=== PATIENT | female | born 1975 | race Caucasian/White ===

== ENCOUNTER 2023-03-18 13:42 | Emergency (ER) | payer OTHER, SELFPAY ==
[2023-03-18 13:45] VITALS: BP 120/82
--- NOTE | 2023-03-18 14:39 | ED.GENMED ---
History of Present Illness
General
Chief Complaint: Musculo-Skeletal Complaint
Source: patient
Exam Limitations: none
Time Seen by Provider: 03/18/23 14:01
Nursing documentation reviewed up to this point in time: agreed with
Travel History
Have you had any contact with someone who has COVID-19?: No
Do you have any symptoms of coronavirus? Fever > 100 degrees, chills, cough, shortness of breath, sore throat, loss of taste or smell, muscle aches, or headache?: No
History of Present Illness
History of Present Illness:
47-year-old female with a past medical history of colorectal cancer as well as past medical history of PE last chemo dose was 5 days ago. She is currently on a 2-week of chemo. She noticed worsening discomfort mainly to her low back with some into
her hips and lower abdomen. Does have somewhat chronic pain to the area but feels that this is somewhat worse no difficulty with movement no numbness or weakness does have some difficulty with ambulation secondary to pain. No nausea vomiting or
fevers. No changes in bowel movements or urination. She has been taking oral Dilaudid without relief.
Past History
Past History
ED Past Medical History: Cancer (Colorectal) and Other (colorectal CA followed by [facility])
ED Past Surgical History: Bowel resection
Social History
Tobacco: Non-smoker
Drug: None
Personal: Single
Living: with family
Review of Systems
Review of Systems
Allergies reviewed?: Yes
All Other Systems: ROS reviewed and negative except as documented in HPI and ROS
Phy Exam
Physical Exam
Physical Exam:
GENERAL: Alert , in no apparent distress
EYE: pupils equal and reactive
NECK: Supple, no significant adenopathy.
ENT: o/p clr, mmm.
CARDIAC: Regular rate and rhythm .
LUNGS: Clear breath sounds bilaterally, no acute respiratory distress, no wheezes/rales/rhonchi
ABDOMEN: Soft, without focal tenderness, no r/g, no cvat
NEUROLOGICAL: Alert and oriented, no focal neuro deficits
SKIN: Warm and dry, skin intact.
MUSCULOSKELETAL: No edema, well perfused.
PSYCH: Normal and appropriate interaction.
Course
Orders/Labs/Results
Orders:
Orders
03/18/23 14:18
CT Abd/pelvis W Iv Cont Urgent
Comment:
Reason For Exam: hx colon ca, worsening lbp/hip pain
03/18/23 14:19
HYDROmorphone [Dilaudid] 1 mg IV NOW STA
03/18/23 14:58
BMP [Basic Metabolic Panel] Urgent
CBC/With Diff [Complete Blood Count/With Diff] Urgent
03/18/23 15:37
0.9% Sodium Chloride 500 ml [Nss] 500 ml IV BOLUS
03/18/23 16:38
HYDROmorphone [Dilaudid] 1 mg IV NOW STA
03/18/23 16:42
Ondansetron Injectable [Zofran] 4 mg .ROUTE .ST-MED ONE
03/18/23 17:40
Urinalysis Reflex To Culture Urgent
Date Specimen was Collected: 03/18/23
Time Specimen was Collected: 16:28
Abnormal Lab Results
03/18/23
14:58
WBC 2.8 L 10^3/uL
(4.8-10.8)
RBC 3.59 L 10^6/uL
(4.20-5.40)
Hgb 11.0 L g/dL
(12.0-16.0)
Hct 30.9 L %
(37.0-47.0)
RDW 14.8 H %
(11.5-14.5)
Absolute Lymphs (auto) 0.5 L 10^3/uL
(1.2-3.4)
Lymphocytes % 18.4 L %
(20.5-51.1)
Sodium 128 L mmol/L
(135-145)
Creatinine 0.5 L mg/dL
(0.6-1.0)
Glucose 111 H mg/dl
(70-99)
03/18/23 14:58
03/18/23 14:58
Vital Signs
Initial and Last Documented VS:
Initial Vital Signs
Temp Pulse Resp BP Pulse Ox
97.9 F 77 17 120/82 98
03/18/23 13:45 03/18/23 13:45 03/18/23 13:45 03/18/23 13:45 03/18/23 13:45
Last Documented Vital Signs
Temp Pulse Resp BP Pulse Ox
97.9 F 66 17 99/70 96
03/18/23 13:45 03/18/23 16:02 03/18/23 13:45 03/18/23 16:02 03/18/23 16:02
MDM/Problems Addressed
MDM/Problems Addressed:
47-year-old female presenting to the emergency department today with concerns of low back hip discomfort worsening over the past few days. Does have history of colorectal cancer takes Dilaudid multiple times daily without relief. Here patient
vital signs are normal patient in no obvious distress but claims she has significant pain when trying to ambulate. Oncologist was concerned that her pain was poorly controlled and she may need imaging to rule out signs of metastasis. Considering
this patient was ordered CT scan as well as IV pain medication.
CT scan showing lymphadenopathy. Patient is aware of lymphadenopathy and currently being treated with chemo with her oncologist. No additional emergent findings. No specific explanation of patient's ongoing discomfort. Plan for pain management
and patient will follow-up closely with her oncologist. Return precautions given.
*Critical Care Note
Total Time (30-74mins, 75-104mins- exclusive of procedures): Not Applicable
ED Attending Note
-
Portions of this chart may have been created with voice recognition software.� Occasional wrong word or��sound alike� substitutions may have occurred due to the inherent limitations of voice recognition software.
Discharge Plan
Departure
Patient Disposition: Home (Routine Discharge)
Date of Disposition: 03/18/23
Time of Disposition: 18:07
Patient with high blood pressure during this ER visit?: No
Condition: Good
Covid-19: Not Applicable
Discharge Problem:
Back pain
Instructions: Back Pain
Prescriptions:
New
fentanyl 50 mcg/hr patch 72 hour
1 patch transdermal Q72H Qty: 5 0RF
ondansetron 4 mg tablet,disintegrating
4 mg PO Q8H PRN (Reason: nausea and vomiting) Qty: 10 0RF
No Action
sennosides [senna] 8.6 mg Tablet
17.2 mg PO HS
ondansetron 8 mg Tablet,Disintegrating
8 mg PO Q8H PRN (Reason: nausea)
lorazepam 0.5 mg Tablet
0.5 mg PO BIDPRN PRN (Reason: anxiety)
Patient Comments:
02/14/2023, patient filled this medication on 01/21/2023 for 60 tablets according to PDMP. Patient states that they take this medication in between when they take their Zofran.
magnesium oxide 500 mg Tablet
500 mg PO DAILY
hydromorphone 4 mg Tablet
4 mg PO Q4H PRN (Reason: mild pain)
Patient Comments:
02/14/2023, patient filled this medication on 02/13/2023 for 90 tablets according to PDMP.
hydromorphone 4 mg Tablet
8 mg PO Q4H PRN (Reason: severe pain)
Patient Comments:
02/14/2023, patient filled this medication on 02/13/2023 for 90 tablets according to PDMP.
Eliquis 5 mg Tablet
5 mg PO BID
miracle mouthwash
5 ml PO 4XD PRN (Reason: sore throat) Qty: 100 0RF
Referrals:
Esme Thomas MD [Active] - Follow up in 1 week
Lori Hurley MD [Family Provider] -
Activity Restrictions/Additional Instructions:
You came to the emergency department today with concerns of ongoing discomfort. Please take the fentanyl patch to help with symptoms and follow-up closely with oncology and palliative care. Return to the emergency department for any worsening, new
or concerning symptoms.
Interventions
Interventions:
*Risk Screen - Suicide Last Done: 03/18/23 15:08
*General Assessment Last Done: 03/18/23 13:43
*Neglect/Abuse Screening Last Done: 03/18/23 15:08
ED- Fall Risk Assessment Last Done: 03/18/23 15:08
*ED COVID-19 Vaccine History Last Done: 03/18/23 15:08
ED-Musculoskeletal Assessment Last Done: 03/18/23 15:08
[2023-03-18 14:48] VITALS: BMI 19.4
[2023-03-18] MEDS: DILAUDID 1 MG IV (15:04)
[2023-03-18 15:11] LABS: % Basophils 0.4 % (0-2); % Immature Granulocytes 0.4 % (0-0.5); % Lymphocytes 18.4 % (20.5-51.1); % Monocytes 8.1 % (1.7-9.3); % Neutrophils 72.7 % (42.2-75.2); Absolute Lymphocytes 0.5 10^3/uL (1.2-3.4); Absolute Monocytes 0.2 10^3/uL (0.1-0.6); Absolute Neutrophils 2.1 10^3/uL (1.4-6.5); Hematocrit 30.9 % (37.0-47.0); Mean Corp Hgb Conc. 35.6 g/dL (33.0-37.0); Mean Corpuscular Hgb 30.6 pg (27.0-31.0); Mean Corpuscular Volume 86.1 fL (81.0-99.0); Mean Platelet Volume 8.7 fL (7.4-10.4); Nucleated Red Blood Cells % 0 %; Platelet Count 277 10^3/uL (130-400); Red Blood Cell Count 3.59 10^6/uL (4.20-5.40); Red Cell Dist. Width 14.8 % (11.5-14.5); White Blood Cell Count 2.8 10^3/uL (4.8-10.8)
[2023-03-18 15:31] LABS: Blood Urea Nitrogen 15 mg/dl (7-17); Calcium 9.2 mg/dl (8.4-10.2); Carbon Dioxide 25 mmol/L (22-30); Chloride 99 mmol/L (98-107); Estimated Creatinine Clearance 91 ml/min; Glucose 111 mg/dl (70-99); Potassium 4.1 mmol/L (3.5-5.1); Sodium 128 mmol/L (135-145); eGFR > 60.00
[2023-03-18 16:02] VITALS: BP 99/70
[2023-03-18] MEDS: NSS 500 IV (16:04)
[2023-03-18 18:05] LABS: Urine Albumin Trace (Neg - Trace); Urine Bilirubin Negative (Negative); Urine Character Clear (Clear); Urine Color Yellow; Urine Glucose Negative (Negative); Urine Ketone Negative (Negative); Urine Leukocyte Negative (Negative); Urine Nitrite Negative (Negative); Urine Occult Blood Negative (Negative); Urine Specific Gravity 1.015 (<1.030); Urine Urobilinogen Negative (Neg - 1+); Urine pH 6.5 (5.0-9.0)
== END 2023-03-18 18:55 | disposition home or self-care (01) ==
LOC: EMR 13:42
PROVIDERS: Physician Assistant; EMERGENCY PHYSICIAN Emergency Medicine; FAMILY PHYSICIAN Family Medicine
DX: M54.9 Dorsalgia, unspecified (principal); G89.29 Other chronic pain; Z85.048 Personal history of other malignant neoplasm of rectum, rectosigmoid junction, and anus; Z86.711 Personal history of pulmonary embolism
CPT/HCPCS: 99284; 96374; 74177; 80048; 81003; 85025; Q9967

== ENCOUNTER 2023-04-02 10:20 | Inpatient (IN) | payer OTHER, SELFPAY ==
[2023-03-31 23:33] VITALS: BP 130/84
--- NOTE | 2023-03-31 23:39 | ED.GENMED ---
History of Present Illness
General
Chief Complaint: Generalized Pain
Time Seen by Provider: 03/31/23 23:39
Travel History
Have you had any contact with someone who has COVID-19?: No
Do you have any symptoms of coronavirus? Fever > 100 degrees, chills, cough, shortness of breath, sore throat, loss of taste or smell, muscle aches, or headache?: No
History of Present Illness
History of Present Illness:
HPI: The patient presents with generalized pain. She does have some abdominal discomfort but also reports pain into her back and left hip region. She states she does not have any metastatic disease spine. She was diagnosed with colorectal cancer
through [facility] in 2019. Her current oncologist is through [facility]. She has had a few recent visits to [facility] for pain related issues. She was discharged from the ER the last couple of times. Today the pain feels worse. She says that
she could not tolerate another abdominal CT scan. She did have weight loss in the past but overall it has stabilized more recently. She uses a fentanyl patch and uses oral Dilaudid at home. She did call her doctors at [facility] but did not receive any
call back. She last had chemo about 2 weeks ago. She is hoping to get into a clinical trial soon.
EXAM:
GENERAL: The patient is chronically ill in appearance, somewhat cachectic, and port noted to the right anterior chest
HEENT: Slightly dry oral mucosa
CARDIOVASCULAR: No murmurs, borderline tachycardic heart rate and rhythm, No chest wall tenderness
PULMONARY: No respiratory distress, breath sounds are clear and equal
ABDOMEN: Soft with no peritoneal signs, minimal diffuse tenderness
NEUROLOGIC: Excellent strength all extremities, no coordination deficits
PSYCHIATRIC: Appropriate mental status, normal insight and judgement
EXTREMITIES: Nontender, no edema, moves all extremities equally
SKIN: No rash, no lesions
ED COURSE:
11:40 PM: I initially evaluated patient
NUMBER AND COMPLEXITY OF PROBLEMS ADDRESSED AT THE ENCOUNTER
� Chronic conditions affecting care: Colorectal cancer, has had PE
� Acute Exacerbation and/or Progression of Chronic Illness: This is a recurring
� Differential Diagnosis includes: Cancer related pain, metastatic disease progression, HUY, dehydration
AMOUNT AND/OR COMPLEXITY OF DATA TO BE REVIEWED AND ANALYZED
� I performed an independent evaluation of and my interpretation is:
EKG:
CT: CT scan from 03/18/2023 shows metastatic lymphadenopathy
X-rays:
Laboratory Studies: White count is 2.5 and hemoglobin is 10.8 which are comparable to 2 weeks ago. Creatinine 0.4, albumin 3.6, other labs relatively unremarkable
Other:
� Review of other/old records: The patient was here last month and felt to be dehydrated. Recent CT from 03/18/2023 showed 'increased low-attenuation soft tissue in the upper abdomen aortocaval and pericaval regions suspicious for
metastatic lymphadenopathy'
� Clinical information was obtained by an independent historian: I spoke to the mother and brother at bedside
� Prescriptions/Medications Considered but not given:
� Further testing considered but not performed: Considered CT imaging of the patient adamantly states that she cannot tolerate another CT scan and she did have recent CT imaging
RISK OF COMPLICATIONS AND/OR MORBIDITY OR MORTALITY OF PATIENT MANAGEMENT
� Social determinants of health affecting care: Lives at home
� Discussion with other providers:
� Escalation of care including admission/observation vs risk of discharge considered: There has been some improvement in the patient's pain after 2 mg of Dilaudid were given twice. The patient already takes 8 mg of Dilaudid
every 4 hours. She has an appointment to see pain pain management in [place] on . She already has a fentanyl 50 mcg/h patch. We did give an additional 2 mg dose of Dilaudid at 1:15 AM. Will add a one-time extra fentanyl 25 mcg/h patch on
top of the fentanyl 50 mcg/h patches. She does have an appointment to see pain management in 2 days.
Past History
Past History
ED Past Medical History: Cancer (Colorectal) and Other (colorectal CA followed by [facility])
ED Past Surgical History: Bowel resection
Social History
Tobacco: Non-smoker
Drug: None
Personal: Single
Living: with family
Phy Exam
Physical Exam
Physical Exam:
See HPI
Course
Orders/Labs/Results
Orders:
Orders
03/31/23 23:41
Complete Blood Count/With Diff Urgent
Comprehensive Metabolic Panel Urgent
0.9% Sodium Chloride 1000 ml [Nss] 1,000 ml IV BOLUS
03/31/23 23:47
HYDROmorphone [Dilaudid] 2 mg IV NOW STA
Ondansetron Injectable [Zofran] 4 mg IV NOW STA
04/01/23 00:39
HYDROmorphone [Dilaudid] 2 mg .ROUTE .STK-MED ONE
HYDROmorphone [Dilaudid] 2 mg IV NOW STA
04/01/23 01:11
HYDROmorphone [Dilaudid] 2 mg IV NOW STA
04/01/23 01:17
FentaNYL 25 MCG/HR PATCH [Duragesic 25 Mcg/Hr Patch] 1 patch TRANSDERM NOW STA
04/01/23 01:18
Fentanyl Patch Confirmation BID@[id number]
04/01/23 01:30
REMOVE fentaNYL PATCH [Remove Duragesic Patch] See Dose Instructions REMOVE Q72H
Abnormal Lab Results
04/01/23
00:00
WBC 2.5 L 10^3/uL
(4.8-10.8)
RBC 3.47 L 10^6/uL
(4.20-5.40)
Hgb 10.8 L g/dL
(12.0-16.0)
Hct 31.1 L %
(37.0-47.0)
MCH 31.1 H pg
(27.0-31.0)
RDW 17.3 H %
(11.5-14.5)
Absolute Lymphs (auto) 0.7 L 10^3/uL
(1.2-3.4)
Monocytes % 11.7 H %
(1.7-9.3)
Creatinine 0.4 L mg/dL
(0.6-1.0)
Glucose 145 H mg/dl
(70-99)
04/01/23 00:00
04/01/23 00:00
Vital Signs
Initial and Last Documented VS:
Initial Vital Signs
Temp Pulse Resp BP Pulse Ox
98 F 104 24 130/84 98
03/31/23 23:33 03/31/23 23:33 03/31/23 23:33 03/31/23 23:33 03/31/23 23:33
Last Documented Vital Signs
Temp Pulse Resp BP Pulse Ox
98 F 95 16 113/77 99
03/31/23 23:33 04/01/23 00:36 04/01/23 00:36 04/01/23 00:36 04/01/23 00:36
*Critical Care Note
Total Time (30-74mins, 75-104mins- exclusive of procedures): Not Applicable
ED Attending Note
-
Portions of this chart may have been created with voice recognition software.� Occasional wrong word or��sound alike� substitutions may have occurred due to the inherent limitations of voice recognition software.
Discharge Plan
Departure
Patient Disposition: Home (Routine Discharge)
Date of Disposition: 04/01/23
Time of Disposition: 01:19
Patient with high blood pressure during this ER visit?: Yes
Discharge Problem:
Cancer related pain
Instructions: Cancer Pain Syndromes (DC)
Prescriptions:
No Action
sennosides [senna] 8.6 mg Tablet
17.2 mg PO HS
ondansetron 8 mg Tablet,Disintegrating
8 mg PO Q8H PRN (Reason: nausea)
lorazepam 0.5 mg Tablet
0.5 mg PO BIDPRN PRN (Reason: anxiety)
Patient Comments:
02/14/2023, patient filled this medication on 01/21/2023 for 60 tablets according to PDMP. Patient states that they take this medication in between when they take their Zofran.
magnesium oxide 500 mg Tablet
500 mg PO DAILY
hydromorphone 4 mg Tablet
4 mg PO Q4H PRN (Reason: mild pain)
Patient Comments:
02/14/2023, patient filled this medication on 02/13/2023 for 90 tablets according to PDMP.
hydromorphone 4 mg Tablet
8 mg PO Q4H PRN (Reason: severe pain)
Patient Comments:
02/14/2023, patient filled this medication on 02/13/2023 for 90 tablets according to PDMP.
Eliquis 5 mg Tablet
5 mg PO BID
miracle mouthwash
5 ml PO 4XD PRN (Reason: sore throat) Qty: 100 0RF
ondansetron 4 mg tablet,disintegrating
4 mg PO Q8H PRN (Reason: nausea and vomiting) Qty: 10 0RF
fentanyl 50 mcg/hr patch 72 hour
1 patch transdermal Q72H Qty: 5 0RF
Referrals:
Lori Hurley MD [Family Provider] -
Activity Restrictions/Additional Instructions:
We gave 2 mg of Dilaudid IV 3 times. We then also placed a 25 mcg/h patch in addition to the 50 mcg/h patch. Remove the 25 mcg/h patch in 72 hours. Talk to the pain management doctor this week about further analgesia and also follow-up with your
doctors at.
Interventions
Interventions:
*Risk Screen - Suicide Last Done: 03/31/23 23:33
*General Assessment Last Done: 04/01/23 00:06
*Neglect/Abuse Screening Last Done: 03/31/23 23:33
ED- Fall Risk Assessment Last Done: 04/01/23 00:13
*ED COVID-19 Vaccine History Last Done: 04/01/23 00:06
[2023-03-31] MEDS: NSS 1000 IV (23:58)
[2023-03-31] MEDS: DILAUDID 2 MG IV (23:58)
[2023-03-31] MEDS: ZOFRAN 4 MG IV (23:59)
[2023-04-01] VITALS (7 sets, daily range): BP systolic 108–132; BP diastolic 66–81; BMI 18.8; BMI 18.0
[2023-04-01 00:27] LABS: % Basophils 0.4 % (0-2); % Eosinophils 0.4 % (0-6); % Immature Granulocytes 0.4 % (0-0.5); % Lymphocytes 27.5 % (20.5-51.1); % Monocytes 11.7 % (1.7-9.3); % Neutrophils 59.6 % (42.2-75.2); Absolute Lymphocytes 0.7 10^3/uL (1.2-3.4); Absolute Monocytes 0.3 10^3/uL (0.1-0.6); Absolute Neutrophils 1.5 10^3/uL (1.4-6.5); Hematocrit 31.1 % (37.0-47.0); Hemoglobin 10.8 g/dL (12.0-16.0); Mean Corp Hgb Conc. 34.7 g/dL (33.0-37.0); Mean Corpuscular Hgb 31.1 pg (27.0-31.0); Mean Corpuscular Volume 89.6 fL (81.0-99.0); Mean Platelet Volume 8.6 fL (7.4-10.4); Nucleated Red Blood Cells % 0 %; Platelet Count 180 10^3/uL (130-400); Red Blood Cell Count 3.47 10^6/uL (4.20-5.40); Red Cell Dist. Width 17.3 % (11.5-14.5); White Blood Cell Count 2.5 10^3/uL (4.8-10.8)
--- NOTE | 2023-04-01 00:35 | EDRN ---
Spoke with Dr. Obregon, informed him that patients pain has barely been touched by pain meds, VSS at this time, more meds to be ordered and given
[2023-04-01 00:36] LABS: ALT (SGPT) 10 U/L (0-35); AST (SGOT) 20 U/L (14-36); Albumin 3.6 g/dl (3.5-5.0); Alkaline Phosphatase 72 U/L (38-126); Blood Urea Nitrogen 10 mg/dl (7-17); Calcium 9.8 mg/dl (8.4-10.2); Carbon Dioxide 24 mmol/L (22-30); Chloride 100 mmol/L (98-107); Estimated Creatinine Clearance 88 ml/min; Glucose 145 mg/dl (70-99); Potassium 3.7 mmol/L (3.5-5.1); Sodium 135 mmol/L (135-145); Total Bilirubin 0.6 mg/dl (0.2-1.3); Total Protein 6.6 g/dl (6.3-8.2); eGFR > 60.00
[2023-04-01] MEDS: DILAUDID 2 MG IV ×7 (00:40→22:00)
[2023-04-01] MEDS: DURAGESIC 25 MCG/HR PATCH 1 PATCH TRANSDERM (01:52)
--- NOTE | 2023-04-01 02:28 | EDRN ---
Patient was goig to be discharged, she is having increased pain and is worried about going home and not being able to manage her pain, Dr. Obregon aware and did go in and speak with patient and family about this and admission.
--- NOTE | 2023-04-01 02:30 | HPS.HSE ---
Family Physician
-
Family Physician: Lori Hurley MD
Chief Complaint
-
abdominal pain
History of Present Illness
47F HX colorectal CA (2019 @ [facility] )s/p bowel resection chemo and radiation with known residual tumors in her lymph nodes, chronic abdominal pain syndrome on Fentanyl patch q72h pw generalized pain, known chr adominal discomfort but also reports
pain into her back and left hip region. She uses a fentanyl patch and uses oral Dilaudid at home. She did call her doctors at [facility] but did not receive any call back.
Denied metastatic disease spine.
She last had chemo about 2 weeks ago. She is hoping to get into a clinical trial soon.
She has had a few recent visits to [facility] for pain related issues. She was discharged from the ER the last couple of times. Today the pain feels worse
She declined r abdominal CT.
Medical History
Past Medical History
Past Medical History: Reports Cancer (HX colorectal CA (2019 @ [facility] )s/p bowel resection chemo and radiation with known residual tumors in her lymph nodes, ) and Other (chr narcottic depdent cancer pain syndrome )
Past Surgical History: Reports Bowel Resection
Social History
Tobacco: Non-smoker
Alcohol: None
Family History
Family History: Not pertinent
Allergies / Home Medications
Allergies reflects when Allergies were last updated in [employer].
Home Medications with original date entered in [employer]
Allergy/Medication List:
Allergies
Allergy/AdvReac Type Severity Reaction Status Date / Time
tramadol Allergy Nausea / Verified 03/31/23 23:36
Vomiting
Home Medications
apixaban 5 mg tablet (Eliquis) 5 mg PO BID 02/14/23
hydromorphone 4 mg tablet 4 mg PO Q4H PRN mild pain 02/14/23
hydromorphone 4 mg tablet 8 mg PO Q4H PRN severe pain 02/14/23
lorazepam 0.5 mg tablet 0.5 mg PO BIDPRN PRN anxiety 02/14/23
magnesium oxide 500 mg PO DAILY 02/14/23
miracle mouthwash 5 ml PO 4XD PRN sore throat #100 mL 02/14/23
ondansetron 8 mg disintegrating tablet 8 mg PO Q8H PRN nausea 02/14/23
sennosides 8.6 mg tablet (senna) 17.2 mg PO HS 02/14/23
fentanyl 50 mcg/hr transdermal patch 1 patch transdermal Q72H #5 ea 03/18/23
ondansetron 4 mg disintegrating tablet 4 mg PO Q8H PRN nausea and vomiting #10 tabs 03/18/23
Review of Systems
-
Constitutional: Reports No Symptoms
EENT: Reports No Symptoms
Respiratory: Reports No Symptoms
Cardiac: Reports No Symptoms
Abdomen/GI: Reports See HPI
: Reports No Symptoms
Musculoskeletal: Reports No Symptoms
Skin: Reports No Symptoms
Neurological: Reports No Symptoms
Endocrine: Reports No Symptoms
Hematologic/Lymphatic: Reports No Symptoms
Psych: Reports No Symptoms
Physical Exam
Vital Signs
Vital Signs
Temp Pulse Resp BP Pulse Ox
98 F 88 16 108/72 100
03/31/23 23:33 04/01/23 02:29 04/01/23 02:29 04/01/23 02:29 04/01/23 02:29
Physical Exam
General: Other (see below )
Laboratory Results
-
04/01/23 00:00
04/01/23 00:00
Laboratory Results
Total Bilirubin 0.6 mg/dl (0.2-1.3) 04/01/23 00:00
AST 20 U/L (14-36) 04/01/23 00:00
ALT 10 U/L (0-35) 04/01/23 00:00
Alkaline Phosphatase 72 U/L (38-126) 04/01/23 00:00
Data Reviewed
-
Lab Data: Labs Reviewed by me
Old Records: Reviewed
Impression/Plan
-
Reviewed VS: unremarkable
PE
GENERAL: Alert , in no apparent distress
HEENT : ZARIA
NECK: Supple, no significant adenopathy.
CARDIAC: RRR S1 S2
LUNGS: Clear breath sounds bilaterally
ABDOMEN: Soft, diffuse tenderness, no r/g, no cvat
NEUROLOGICAL: Alert and oriented, no focal neuro deficits
SKIN: Warm and dry, skin intact.
MUSCULOSKELETAL: No edema
PSYCH: Normal and appropriate interaction.
Data
WCC 2.5
Hgb 10.8
Cr 0.4
eGFR > 60
03/18/23 CT AP w IV contrast
1. Increased low-attenuation soft tissue in the upper abdomen aortocaval and precaval regions as described, suspicious for metastatic lymphadenopathy.
Differential includes reactive lymphadenopathy or other neoplasm such as lymphoma.
2. Findings suggesting nonspecific enteritis/ileus.
3. Mild diffuse colonic stool burden may reflect constipation.
No prior hospitalist admission:
ASSESSMENT & PLAN
Chronic abdominal pain flare
S/P IV Dilaudid 2mg x3 without adequate pain relief
HX colorectal CA (2019 @ [facility] )s/p BW resection chemo and XRT
Known residual tumors in her lymph nodes,
Recent CT AP 2wks ago w/ increased likely metastatic LAD
P oncologist @ [facility]. .
- resumed Fentanyl 25 mcg patch at ER
- IV Dilaudid 1mf q3h PRN for break thru pain
- Held [employer] LO[employer] UNDER[employer]ITER PO Dilaudid PRN
- Anti emetics
- MORTG[employer] LO[employer]ERWRITER BW regime
- has appointment with pain clinic for initial visit on 04/04/23 @ [facility]
Leucopenia
Last chemo 2 weeks ago
- trend CBC
DVT Px: LMWH
Code: Full
Obs MS
--- NOTE | 2023-04-01 04:13 | EDRN ---
Have been having a hard time controlling patients pain, what is ordered on admission side is Dilaudid 1mg IV q3 prn for pain, patient has been receiving more and more frequently, tiger texted hospitalist to inform them.
[2023-04-01] MEDS: DILAUDID 1.5 MG IV ×3 (05:01→14:12)
--- NOTE | 2023-04-01 05:09 | EDRN ---
Patient reporting increased pain, medicated per orders for patients severe pain.
[2023-04-01] MEDS: NSS 1000 IV ×2 (06:01→22:12)
--- NOTE | 2023-04-01 06:38 | PTCARENOTE ---
Received pt from the ED via stretcher. Pt ambulates independently and steadily, but hunched over for comfort, denies dizziness or unsteadiness. Pt AAOx3, only c/o 9/10 abd pain radiating to the back and L hip and down the left leg. D/w covering
TAIL END RIDER, 2mg STAT IV Dilaudid for intractable 9/10 abd pain. Pt oriented to unit and call ayon.
[2023-04-01 06:54] LABS: Hematocrit 27.9 % (37.0-47.0); Hemoglobin 9.4 g/dL (12.0-16.0); Mean Corp Hgb Conc. 33.7 g/dL (33.0-37.0); Mean Corpuscular Hgb 30.7 pg (27.0-31.0); Mean Corpuscular Volume 91.2 fL (81.0-99.0); Mean Platelet Volume 8.6 fL (7.4-10.4); Platelet Count 156 10^3/uL (130-400); Red Blood Cell Count 3.06 10^6/uL (4.20-5.40); Red Cell Dist. Width 17.3 % (11.5-14.5)
[2023-04-01 07:11] LABS: White Blood Cell Count 2.3 10^3/uL (4.8-10.8)
[2023-04-01 07:39] LABS: Blood Urea Nitrogen 8 mg/dl (7-17); Calcium 8.7 mg/dl (8.4-10.2); Carbon Dioxide 25 mmol/L (22-30); Chloride 105 mmol/L (98-107); Estimated Creatinine Clearance 84 ml/min; Glucose 103 mg/dl (70-99); Potassium 3.8 mmol/L (3.5-5.1); Sodium 134 mmol/L (135-145); eGFR > 60.00
[2023-04-01] MEDS: DURAGESIC 50 MCG/HR PATCH 1 PATCH TRANSDERM (08:13)
[2023-04-01] MEDS: ELIQUIS 5 MG PO ×2 (08:16→20:18)
[2023-04-01] MEDS: DILAUDID 1 MG IV ×2 (08:16→11:46)
[2023-04-01] MEDS: MAGNESIUM OXIDE 500 MG PO (08:16)
--- NOTE | 2023-04-01 10:00 | PTCARENOTE ---
Addendum entered by Kristy Rutherford RN 04/01/23 14:58:
pt had episode of 300ml stomach bile emesis. pt given prn zofran. prn dilaudid dose increased from 1.5mg to 2mg every three hours. pt and family very upset at bedside about pain management. MD aware and doses are being adjusted appropriately. plan
is for patient to be transferred to [place] to her main oncologist. MD given Physician assistance number that this nurse received.
Original Note:
this nurse reached out to MD regarding pain management for this patient. since 2357 she has gotten 14 mg of dilaudid through her R SQ port. pt is very tearful at bedside and states 'nothing is helping manage the pain'. pt has hx of colorectal cancer
and bowel resection. MD aware of current pain levels and will be by to assess.
--- NOTE | 2023-04-01 10:40 | CM ---
Addendum entered by Srini Polk 04/01/23 15:44:
Per request: Face sheet faxed to [facility] in preparation for possible transfer.
Original Note:
OBS status. Initial assessment completed with patient. Patient has history of colorectal cancer and is in severe anal and abdominal pain. Patient has a 2 story home with bath on 1st and bedrooms on 2nd. There are 2 steps to enter. Patient lives
alone but has been staying with her mother. Mother and brother are support system. She was independent in ADL's and drove up to one year ago. She no longer drives and needs some assistance with ADL's due to chronic pain. She has a living will. No
services or DME in the home. No psychiatric services or hospitalizations. Pharmacy is [facility] on [address] in [place] and PCP is Dr. Lori Hurley with [facility]. Discharge plan of care: TBD. Anticipate home with no-needs once pain is
managed.
[2023-04-01] MEDS: ATIVAN 0.5 MG PO ×2 (11:46→20:17)
--- NOTE | 2023-04-01 13:03 | W.PN.UPDATE ---
Update Note
Progress Note Update
Pt admitted this am by Dr Lopez with persistent abdo pain and left lateral back pain along with radition to left thigh just to above knee.
Been progressive for months but now increasing in intensity.
She is already on high doses of narcotics at home with fentanyl patch and 8mg of po dilaudid .
She tells me that she had eval before for it including CT imaing of abdomen and MRI L spine and was told it is sec to her cancer and LN .
Nontoxic looking. Afeb. WBC normal
Abdomen -soft , tenderness localized to mid to RLQ area.
No lumbar spinal tenderness .
Some bony tenderness in left anterior iliac area ;painless range of left hip;no left hip joint line. No motor weakness in left leg.
Lab data noted.
Pt would benefit repeat abdo imaging , MRI L spine and MR left pelvis. Will dw her primary onc at [facility] regarding pain workup
CW current regimen
Add her home dose of pain meds
[2023-04-01] MEDS: DILAUDID 8 MG PO ×2 (13:23→17:26)
[2023-04-01] MEDS: MIRALAX 17 GRAMS PO (13:23)
[2023-04-01] MEDS: ZOFRAN ODT (ORALLY DISINTEGRATING) 4 MG PO (14:19)
[2023-04-01] MEDS: COLACE 100 MG PO (20:18)
[2023-04-01] MEDS: SENOKOT 8.59999999999999964 MG PO (20:18)
[2023-04-01] MEDS: SENOKOT 17.1999999999999993 MG PO (22:03)
[2023-04-01] MEDS: ZOFRAN 4 MG IV (22:08)
--- NOTE | 2023-04-01 23:20 | PTCARENOTE ---
Spoke with Gilda from [facility]; states there is no bed availability for the night, they reassess their bed status on a daily basis and will call back tomorrow for an update. Clinical update provided to Gilda. Bed availability update
provided to pt.
[2023-04-02] MEDS: DILAUDID 2 MG IV ×7 (01:00→22:37)
[2023-04-02] MEDS: DILAUDID 8 MG PO (02:04)
--- NOTE | 2023-04-02 04:37 | DOWNTIME ---
There was a [employer] Client Scrubber System Attendant Downtime on 04/02/2023 from 0111 to 04/02/2023 at 0405. Downtime documentation of patient's care, including medication administrations, has been reconciled in the electronic record per guidelines. Refer to the
patient's paper chart under the miscellaneous tab to see printed paper medication records and downtime forms.
[2023-04-02 07:05] VITALS: BP 124/86
[2023-04-02] MEDS: MAGNESIUM OXIDE 500 MG PO (08:20)
[2023-04-02] MEDS: ELIQUIS 5 MG PO ×2 (08:20→19:52)
[2023-04-02] MEDS: MIRALAX 17 GRAMS PO (08:21)
[2023-04-02] MEDS: SENOKOT 8.59999999999999964 MG PO ×2 (08:21→19:52)
[2023-04-02] MEDS: COLACE 100 MG PO (08:21)
--- NOTE | 2023-04-02 10:38 | W.PN.HOSP.TC ---
Addendum entered and electronically signed by Arjun Ramsay MD 04/04/23 15:48:
�Pt meets criteria for severe protein calorie malnutrition with >55 wt loss x 1mo, prolonged poor intake prior to admit > 1 month, severe loss of muscle and fat..Subcutaneous Fat Loss of fat over orbital, Loss of Fat over tricep, Muscle loss� Loss
of muscle over temporal, Loss of muscle over buccal, Loss of muscle over clavicle.
Original Note:
Today's Communication/Plan
-
DC
Assessment / Plan
Assessment / Plan
Intractable abdominal left lower lateral back pain with radiation to left thigh-been progressively worse-has had CT evaluation and lumbar spine MRI in the past for the same reason. It was suspected may be cancer related/lymphadenopathy. Not
amenable to her home narcotic regimen. Currently on IV narcotics. Holding on imaging evaluation here as the patient has been accepted to [facility] oncology service. Await bed to be transferred today.
Continue with laxative regimen.
Colon cancer-has had chemotherapy treatments but now waiting to go on a trial drug regimen.
DW family at bedside
Yesterday DW Dr Clay Pearson her primary oncologist at [facility] who accepted the patient. Discussed with the [facility] transfer center regarding the transfer process itself.
Transfer to [facility] when bed available
Anticipated Discharge: Today
Subjective/Interval History
-
Date of Service: April 02, 2023
Patient gets relief with IV Dilaudid. She is not getting much help from p.o. Dilaudid.
The pain is still in her abdomen and left lower back pain radiating to the thigh. No changes to the intensity of the nature of the pain. Voices no new specific complaints.
Objective Data
-
Vital Signs:
Vital Signs
Temp Pulse Resp BP Pulse Ox
98.2 F 120 18 124/86 97
04/02/23 07:05 04/02/23 07:05 04/02/23 07:05 04/02/23 07:05 04/02/23 07:05
I&O
04/01/23 04/02/23 04/03/23
06:59 06:59 06:59
Intake Total 1919
Balance 1919
Review of Systems
-
Constitutional: Denies Fever
Respiratory: Denies Trouble Breathing
Cardiac: Denies Chest Pain
Abdomen/GI: Denies Nausea or Vomiting
Neuro: Denies Dizzy
Physical Exam
-
General: No Apparent Distress
HEENT: Moist Mucous Membranes
GI: Soft
Neuro: AO x 3
Psych: Calm
[2023-04-02] MEDS: NSS IV (11:35)
[2023-04-02] MEDS: ATIVAN 0.5 MG PO (14:38)
[2023-04-02 15:00] VITALS: BP 112/74
--- NOTE | 2023-04-02 16:12 | CM ---
Patient scheduled for transfer to [facility]. As of this AM, no available bed. Patient is on Urgent Priority list for Oncology unit. Will continue to follow and offer support.
[2023-04-02 19:05] VITALS: BP 111/56
[2023-04-02] MEDS: COLACE PO (19:51)
--- NOTE | 2023-04-02 20:22 | PTCARENOTE ---
[facility] with bed availability tonight. Patient to be transferred to [facility]. Hospitalist Dr. Corbin Montez from [facility] called for sign out on patient - Dr. Rmasay notified. Report called to Nurse Darryn Bennett at [facility] using number [phone]. Patient updated on
plan of care. Patient to be picked up at 2130 by acute care.
[2023-04-02] MEDS: ZOFRAN 4 MG IV (22:38)
--- NOTE | 2023-04-02 22:50 | PTCARENOTE ---
Report given to Acute care ambulance. Patient to be transferred to [facility].
--- NOTE | 2023-04-03 07:36 | W.DCSUMMARY ---
Discharge Summary
Discharge Data
Date of Admission: 04/02/23
Date of Discharge: 04/02/23
-
Pending Results: No
Hospital Course
Primary diagnosis:
Intractable cancer pain
Metastatic colon cancer
Hospital course:
47-year-old female with metastatic colon cancer who awaits to enroll into trials presents with the progressive intractable pain. The pain is localized to the abdomen as well as to the left lower back radiating to the left thigh just above the knee.
It was evaluated in the recent past with a CAT scan of the abdomen pelvis and also lumbar spine MRI apparently. He was already on a high dose of narcotics at home which were not working-she is on fentanyl 50 mcg patch and 8 mg of Dilaudid as
needed every 4 hours. She was admitted for pain control n. Case was discussed with primary oncologist at [facility] where her care is mostly and that she was transferred to [facility] for further diagnostic and treatment evaluation.
Discharge Plan
-
Patient Disposition: Acute Care Hospital
Condition: Fair
Discharge Orders:
Discharge Patient (As Directed); Ordered 04/02/23
Ordered By: Arjun Ramsay
Discharge Date and Time
Discharge Date/Time: 04/02/23 22:50
--- NOTE | 2023-04-03 10:12 | CM ---
Patient was discharged to [facility]. Ambulance transport scheduled for 04/02/23 in evening.
--- NOTE | 2023-04-03 10:21 | PN.CDI ---
CDI
- -
CDI:
Physician Documentation Request
Admit Date: 04/02/23 10:20
Dear Doctor Devendra,
Please review the following and provide your response in the progress notes.
Clinical Indicators:
Pt admitted with Cancer related pain /colon cancer
Documented in the record Cachexia, BMI 18.0
Nutrition consult 04/01,' Pt reports intake has been limited for 2-4weeks due to abdominal pain. She has no desire to eat. Minimal intake of food supplemented with [employer] plant based health shake mixed with peanut butter and banana or [employer]
[facility]. 25lb 25% significant wt loss over the past month related to decline in meal intake. CBW (04/01) 101lb 11.2oz BMI 18 under wt/ht..... Pt meets criteria for severe protein calorie malnutrition with >55 wt loss x 1mo, prolonged poor intake prior
to admit > 1 month, severe loss of muscle and fat..Subcutaneous Fat Loss of fat over orbital, Loss of Fat over tricep, Muscle loss Loss of muscle over temporal, Loss of muscle over buccal, Loss of muscle over clavicle...'
Based on the information, which of the following most accurately represents the patient's nutritional status?
Severe Protein Calorie Malnutrition
Other (please specify)
Unable to determine
[place] Criteria (ACP Hospitalist 2017)
2 or more criteria must be present for either
non severe or severe malnutrition
Note that the criteria differs related to the
presence of an acute or chronic illness
Acute Illness Chronic Illness
Energy Intake Non Severe: <75% for >7 days Non Severe: <75% for >1 month
Severe: <50% for >5 days Severe: <75% for >1 month
Weight Loss Non Severe: 1-2% over 1 week Non Severe: 5% over 1 month
5% over 1 month 7.5% over 3 months
7.5% over 3 months 10% over 6 months
1 year N/A 20% over 1 year
Severe: >2% over 1 week Severe: >5% over 1 month
>5% over 1 month >7.5% over 3 months
>7.5% over 3 months >10% over 6 months
1 year N/A >20% over 1 year
Body Fat Non Severe: Mild Decrease Non Severe: Mild Loss
Severe: Moderate Decrease Severe: Severe Loss
Muscle Mass Non Severe: Mild Decrease Non Severe: Mild Loss
Severe: Moderate Decrease Severe: Severe Loss
Fluid Accumulation Non Severe: Mild Accumulation Non Severe: Mild Accumulation
Severe: Moderate to severe Severe: Moderate to severe
accumulation accumulation
Reduced Housekeeper Supervisor Strength Non Severe: N/A Non Severe: N/A
Severe: Measurably reduced Severe: Measurably reduced
Use of terms such as suspected, likely, concern for, or probable (associated with a specific diagnosis that is being evaluated, monitored, or treated as if it exists) are acceptable and can be coded in the inpatient setting, when documented at the
time of discharge.
Thank you,
Courtney Sandoval RN
CDI Specialist
[facility]
Please use your independent medical judgment in providing your response.
== END 2023-04-02 22:50 | disposition short-term general hospital (02) | DRG 947 ==
LOC: 2 NORTH 10:20
PROVIDERS: ADMITTING PHYSICIAN Internal Medicine; ATTENDING PHYSICIAN Internal Medicine; EMERGENCY PHYSICIAN Emergency Medicine; FAMILY PHYSICIAN Family Medicine
DX: G89.3 Neoplasm related pain (acute) (chronic) (principal); E43 Unspecified severe protein-calorie malnutrition; C19 Malignant neoplasm of rectosigmoid junction; N17.9 Acute kidney failure, unspecified; C79.9 Secondary malignant neoplasm of unspecified site; Z68.1 Body mass index [BMI] 19.9 or less, adult; E86.0 Dehydration; R59.1 Generalized enlarged lymph nodes; R64 Cachexia; D72.819 Decreased white blood cell count, unspecified; G89.4 Chronic pain syndrome; R10.9 Unspecified abdominal pain; Z92.21 Personal history of antineoplastic chemotherapy; Z79.01 Long term (current) use of anticoagulants; Z79.891 Long term (current) use of opiate analgesic; Z90.49 Acquired absence of other specified parts of digestive tract; Z92.3 Personal history of irradiation; Z88.5 Allergy status to narcotic agent
CPT/HCPCS: 80048; 80053; 85025; 85027; 96361; 96374; 96375; 96376; 99285

== ENCOUNTER 2023-07-21 14:18 | Emergency (ER) | payer OTHER, SELFPAY ==
[2023-07-21 14:30] VITALS: BP 103/68
[2023-07-21] MEDS: ZOFRAN 4 MG IV (15:39)
[2023-07-21] MEDS: DILAUDID 1 MG IV ×2 (15:39→16:27)
--- NOTE | 2023-07-21 21:12 | ED.GENMED ---
History of Present Illness
General
Chief Complaint: Back Pain
Source: patient
Exam Limitations: none
Time Seen by Provider: 07/21/23 15:15
Nursing documentation reviewed up to this point in time: agreed with
Travel History
Have you had any contact with someone who has COVID-19?: No
Do you have any symptoms of coronavirus? Fever > 100 degrees, chills, cough, shortness of breath, sore throat, loss of taste or smell, muscle aches, or headache?: No
History of Present Illness
History of Present Illness:
Patient to ED with exacerbation of her back pain. She has a history of rectal CA with lymphatic mets. Currently she is on palliative care thru [facility] and is waiting to begin a trial. Typically she is maintained on Dilaudid tablets and methadone
however she has been unable to get dilaudid for the past 2 weeks. Her palliative care provder gave her a prescription for oxycodone but his has not been helpful. SHe has stopped her fentanyl patches also due to lack of response. brought to ED by
family for eval. Pain is typical, but not controlled.
Past History
Past History
ED Past Medical History: Cancer (Colorectal) and Other (colorectal CA followed by [facility])
ED Past Surgical History: Bowel resection
Social History
Tobacco: Non-smoker
Drug: None
Personal: Single
Living: with family
Review of Systems
Review of Systems
Allergies reviewed?: Yes
All Other Systems: ROS reviewed and negative except as documented in HPI and ROS
Constitutional: Reports no symptoms
EENT: Reports no symptoms
Respiratory: Reports no symptoms
Cardiac: Reports no symptoms
ABD/GI: Reports no symptoms
: Reports no symptoms
Musculoskeletal: Reports back pain (middle back pain)
Skin: Reports no symptoms
Neurological: Reports no symptoms
Psychiatric: Reports no symptoms
Phy Exam
General Physical Exam
General Presentation: well appearing and mild distress
General age: appears stated age
General Skin: warm and dry
General Habitus: normal
General Mental: alert
General Hydration: appears well hydrated
Musculoskeletal Exam
Musculoskeletal Exam: full ROM and neuro vasc intact
Skin Exam
Skin Exam: normal color, warm/dry and no rash
Psychiatric Exam
Psychiatric Exam: normal mood/affect
Course
Orders/Labs/Results
Orders:
Orders
07/21/23 15:29
HYDROmorphone [Dilaudid] 1 mg IV NOW STA
Ondansetron Injectable [Zofran] 4 mg IV NOW STA
07/21/23 16:08
HYDROmorphone [Dilaudid] 1 mg IV NOW STA
Vital Signs
Initial and Last Documented VS:
Initial Vital Signs
Temp Pulse Resp BP Pulse Ox
98.5 F 99 22 103/68 98
07/21/23 14:30 07/21/23 14:30 07/21/23 14:30 07/21/23 14:30 07/21/23 14:30
Last Documented Vital Signs
Temp Pulse Resp BP Pulse Ox
98.5 F 99 22 103/68 98
07/21/23 14:30 07/21/23 14:30 07/21/23 14:30 07/21/23 14:30 07/21/23 14:30
*Critical Care Note
Total Time (30-74mins, 75-104mins- exclusive of procedures): Not Applicable
Update Note
Update Note:
She was able to find a pharmacy in [place] that has dilaudid tabs. Prescription electronically sent. She will follow up with her pain managment team in AM for further prescriptions.
ED Attending Note
-
Portions of this chart may have been created with voice recognition software.� Occasional wrong word or��sound alike� substitutions may have occurred due to the inherent limitations of voice recognition software.
Discharge Plan
Departure
Patient Disposition: Home (Routine Discharge)
Date of Disposition: 07/21/23
Time of Disposition: 17:28
Patient with high blood pressure during this ER visit?: No
Condition: Fair
Covid-19: Not Applicable
Discharge Problem:
Colon cancer, Chronic pain due to malignant neoplastic disease
Prescriptions:
New
hydromorphone [Dilaudid] 4 mg tablet
4 mg PO Q4H PRN (Reason: Pain) Qty: 14 0RF
Rx Instructions:
May take 8mg for severe pain
No Action
sennosides [senna] 8.6 mg Tablet
17.2 mg PO HS
ondansetron 8 mg Tablet,Disintegrating
8 mg PO Q8H PRN (Reason: nausea)
lorazepam 0.5 mg Tablet
0.5 mg PO BIDPRN PRN (Reason: anxiety)
Patient Comments:
02/14/2023, patient filled this medication on 01/21/2023 for 60 tablets according to PDMP. Patient states that they take this medication in between when they take their Zofran.
magnesium oxide 500 mg Tablet
500 mg PO DAILY
hydromorphone 4 mg Tablet
4 mg PO Q4H PRN (Reason: mild pain)
Patient Comments:
02/14/2023, patient filled this medication on 02/13/2023 for 90 tablets according to PDMP.
hydromorphone 4 mg Tablet
8 mg PO Q4H PRN (Reason: severe pain)
Patient Comments:
02/14/2023, patient filled this medication on 02/13/2023 for 90 tablets according to PDMP.
Eliquis 5 mg Tablet
5 mg PO BID
miracle mouthwash
5 ml PO 4XD PRN (Reason: sore throat) Qty: 100 0RF
ondansetron 4 mg tablet,disintegrating
4 mg PO Q8H PRN (Reason: nausea and vomiting) Qty: 10 0RF
fentanyl 50 mcg/hr patch 72 hour
1 patch transdermal Q72H Qty: 5 0RF
Referrals:
Clay Shah MD [Family Provider] - Tomorrow
Interventions
Interventions:
*Risk Screen - Suicide Last Done: 07/21/23 17:40
*General Assessment Last Done: 07/21/23 17:40
*Neglect/Abuse Screening Last Done: 07/21/23 17:40
ED- Fall Risk Assessment Last Done: 07/21/23 17:40
*ED COVID-19 Vaccine History Last Done: 07/21/23 17:40
*Nursing Disposition Last Done: 07/21/23 17:40
ED-Musculoskeletal Assessment Last Done: 07/21/23 17:40
Discharge Date and Time
Discharge Date/Time: 07/21/23 17:41
Print Language: FAROESE
== END 2023-07-21 17:41 | disposition home or self-care (01) ==
LOC: EMR 14:18
PROVIDERS: EMERGENCY PHYSICIAN Emergency Medicine; FAMILY PHYSICIAN Internal Medicine Medical Oncology
DX: C18.9 Malignant neoplasm of colon, unspecified (principal); G89.3 Neoplasm related pain (acute) (chronic); M54.9 Dorsalgia, unspecified; Z51.5 Encounter for palliative care
CPT/HCPCS: 99283; 96374; 96375; 96376

== ENCOUNTER → 2023-09-09 11:20 | Outpatient (REF) | payer OTHER, SELFPAY | LOC: RAD 11:20 | PROVIDERS: ATTENDING PHYSICIAN Family Medicine | DX: Z86.711 Personal history of pulmonary embolism (principal); R60.0 Localized edema | CPT/HCPCS: 93970 ==

== ENCOUNTER 2023-11-08 19:05 | Inpatient (IN) | payer OTHER, SELFPAY ==
[2023-11-08] VITALS (10 sets, daily range): BP systolic 113–130; BP diastolic 84–97; BMI 19.3; BMI 18.5
[2023-11-08 13:55] LABS: COVID-19 Antigen Negative (Negative)
--- NOTE | 2023-11-08 15:04 | ED.GENMED ---
History of Present Illness
General
Chief Complaint: Cold/Flu/URI Symptoms
Source: patient
Time Seen by Provider: 11/08/23 14:30
History of Present Illness
History of Present Illness:
47yoF with a history of colon cancer on chemotherapy presenting with her mother for evaluation of URI symptoms x 2 days. Patient reports sore throat and productive cough for the past several days. Cough is productive of greenish sputum. She has
also noticed some blood mixed in with her sputum. Additionally, she reports shortness of breath. No fevers or chest pain. No known sick contacts. Patient was seen by her PCP earlier today and was sent to the ED for evaluation. Patient follows
with [facility] and last received chemotherapy 3 days ago. She receives chemo Q2 weeks.
Past History
Past History
ED Past Medical History: Cancer (Colorectal) and Other (colorectal CA followed by [facility])
ED Past Surgical History: Bowel resection
Social History
Tobacco: Non-smoker
Drug: None
Personal: Single
Living: with family
Phy Exam
Physical Exam
Physical Exam:
Chronically ill appearing frail female, no acute distress noted
General Physical Exam
General Skin: warm
General Habitus: cachetic and frail
General Mental: alert
ENT Exam
ENT Exam: normocephalic
Cardiovascular Exam
Cardiovascular Exam: tachycardia
Pulmonary Exam
Pulmonary Exam: no respiratory distress and other (+Rales noted bilaterally. Speaking in full sentences without difficulty. )
Skin Exam
Skin Exam: warm/dry and pallor
Psychiatric Exam
Psychiatric Exam: normal mood/affect
Course
Orders/Labs/Results
Orders:
Orders
11/08/23 12:51
Electrocardiogram (*1) Urgent
Reason for Study: Bradycardia / Tachycardia
EKG- Treatment ONCE
11/08/23 12:56
CR Chest - 2 Views Urgent
Comment:
Reason For Exam: suspected infection
11/08/23 13:19
COVID-19 Antigen Urgent
Source: Nasal Swab
Influenza A+B Rapid Molecular Urgent
KRISTIE Source: Nasal Swab
Specimen Description:
11/08/23 15:14
Complete Blood Count/With Diff Urgent
Comprehensive Metabolic Panel Urgent
11/08/23 15:15
D-Dimer Urgent
Troponin I Urgent
11/08/23 15:50
Rapid Strep Group A Urgent
KRISTIE Source: Throat/Pharynx
Specimen Description:
Date Specimen was Collected: 11/08/23
Time Specimen was Collected: 15:48
11/08/23 16:14
CT Chest Pe Study Urgent
Comment:
Reason For Exam: Hemoptysis, elevated D-dimer
11/08/23 16:39
HYDROmorphone [Dilaudid] 2 mg IV NOW STA
11/08/23 18:02
Cefepime HCl [Maxipime] 2,000 mg IV NOW STA
Vancomycin 1 Gram/200 ml [Vancocin] 1 gram in 200 ml IV NOW
11/08/23 18:18
Blood Culture Routine
KRISTIE Source: Blood/Venous
Specimen Description:
Blood Culture Urgent
KRISTIE Source: Blood/Venous
Specimen Description:
11/08/23 18:38
Admit/Transfer Patient As Directed
Co-Sign Provider:
Level of Care: Inpatient admission
Assign to:: Telemetry
Physician / Group: heather
Diagnosis: pneumonia
Reason for Telemetry: Arrhythmia
Date to Stop Telemetry: 11/11/23
Time to Stop Telemetry: 11:00
Reason for Hospitalization: pneumonia
Expected length of stay greater than two midnights?: Yes
ELOS- Estimated Length of Stay in days: 3
I certify the patient meets the requirements for IP care: Yes
PRN Pain Medication Management As Directed
May give lesser potent ordered pain med per pt: Yes
preference::
Protocol:: Medication orders for pain may be administered in a
manner that supports deferring to patient preference
when the pt is:
- Requesting an ordered lesser potent pain medication.
Least to most potent pain medications are defined
as: acetaminophen < NSAID < tramadol < opioids
(morphine, oxycodone, hydromorphone).
- Requesting a lesser dose of the same medication IF
ORDERED.
- Requesting a less intrusive route of administration
if both routes are prescribed by the provider (PO <
IV).
11/08/23 18:39
Code Status As Directed
Resuscitation Status: Full Code
11/08/23 18:58
Heparin Protocol- PTT Orders As Directed
PTT per Heparin protocol: -Obtain CBC and baseline PTT - if not already collected.
-Obtain PTT 6 hours from start of infusion. Then, every 6 hours until 2 consecutive
PTT's are therapeutic. Then, PTT Daily.
-With each rate change, obtain PTT every 6 hours until 2 consecutive PTT's are
therapeutic. Then, PTT Daily.
Notify MD As Directed
Notify physician if: PTT is greater than or equal to 200.
11/08/23 19:00
Heparin 72944 Units/250 ml 25,000 units in 250 ml IV PER PROTOCOL
Weight to be used for heparin protocol in kilograms (kg):: 49.442
Protocol:: DVT/PE
PTT Goal Range to be used:: PTT 73 to 111 seconds
Order type:: Initial
INITIAL Infusion Dose (UNITS/KG/hr) & then follow protocol:: 18 units/kg/hr
Infusion Dose in UNITS/hr & then follow protocol (UNITS/hr):: 900
INFUSION RATE in mL/hr & then follow protocol (mL/hr):: 9
For DVT/PE algorithm, re-bolus for low PTT?: Yes
PTT less than or equal to 64 seconds:: Re-bolus 80 units/kg (max 10,000units). Increase by 200 units/hr
(+ 2mL/hr)
PTT 64.1 to 72.9 seconds:: Re-bolus 40 units/kg (max 5,000 units). Increase by 100 units/hr
(+ 1mL/hr)
PTT 73 to 111 seconds:: Target Range. No change in rate.
PTT 111.1 to 130.9 seconds:: Decrease rate by 100 units/hr (- 1 mL/hr)
PTT 131 to 199.9 seconds:: HOLD for 1 hr. Then decrease by 100 units/hr (- 1mL/hr)
PTT greater than or equal to 200 seconds:: HOLD for 2 hrs & Notify Provider. Then decrease by 200 units/hr
(- 2mL/hr)
Lab follow-up:: Each change, PTT q6h until 2 consecutive are therapeutic. Then
PTT daily.
11/08/23 19:05
Heparin 2,000 units IV PRN PRN
Heparin 3,900 units IV PRN PRN
11/08/23 19:11
PTT Urgent
Comment: Obtain baseline before beginning heparin infusion if not already collected
11/08/23 20:00
Flush (0.9% Sodium Chloride) [Flush (Nss)] See Dose Instructions IV PER PROTOCOL
11/11/23 11:00
DC Protocol for Telemetry ONCE
Abnormal Lab Results
11/08/23 11/08/23
15:14 15:15
WBC 19.7 H 10^3/uL
(4.8-10.8)
RBC 4.03 L 10^6/uL
(4.20-5.40)
Hgb 10.9 L g/dL
(12.0-16.0)
Hct 33.6 L %
(37.0-47.0)
MCHC 32.4 L g/dL
(33.0-37.0)
RDW 19.2 H %
(11.5-14.5)
Abs Immat Gran (auto) 0.1 H 10^3/uL
(0-0.05)
Absolute Neuts (auto) 18.6 H 10^3/uL
(1.4-6.5)
Absolute Lymphs (auto) 0.8 L 10^3/uL
(1.2-3.4)
Neutrophils % 94.6 H %
(42.2-75.2)
Lymphocytes % 4.2 L %
(20.5-51.1)
Monocytes % 0.5 L %
(1.7-9.3)
D-Dimer 11.41 H ug/mlFEU
(0.00-0.50)
Chloride 97 L mmol/L
(98-107)
BUN 27 H mg/dl
(7-17)
Glucose 113 H mg/dl
(70-99)
AST 85 H U/L
(14-36)
Alkaline Phosphatase 298 H U/L
(38-126)
11/08/23 15:14
11/08/23 15:14
Vital Signs
Initial and Last Documented VS:
Initial Vital Signs
Pulse Resp BP Pulse Ox
121 18 118/86 90
11/08/23 12:53 11/08/23 12:53 11/08/23 12:53 11/08/23 12:53
Last Documented Vital Signs
Temp Pulse Resp BP Pulse Ox
98.2 F 99 20 130/94 96
11/08/23 18:00 11/08/23 19:00 11/08/23 19:00 11/08/23 19:00 11/08/23 19:00
MDM/Problems Addressed
Differential Diagnosis Includes:
47yoF here with productive cough, sore throat, and SOB x several days. Hx of colon cancer on chemotherapy. No fevers. She is afebrile and hemodynamically stable. Oxygen saturation documented as 90% in triage although saturations 94-95% during exam.
She is chronically ill appearing on exam. Bibasilar rales on lung exam. No respiratory distress noted. Differential diagnosis includes but is not limited to: viral illness, bronchitis, pneumonia, PE
Initial ED plan: COVID/flu test sent in triage is negative. Check strep swab, CBC, CMP, D-dimer, and CXR.
*Critical Care Note
Total Time (30-74mins, 75-104mins- exclusive of procedures): Not Applicable
Update Note
Update Note:
Leukocytosis noted with a WBC of 19. D-dimer elevated and CTA chest subsequently ordered. Infiltrates noted on CT scan. Blood cultures and IV cefepime/vancomycin ordered. Patient admitted for further management. CT radiology report pending at time
of admission.
ED Attending Note
-
Portions of this chart may have been created with voice recognition software.� Occasional wrong word or��sound alike� substitutions may have occurred due to the inherent limitations of voice recognition software.
Discharge Plan
Departure
Patient Disposition: Admit
Date of Disposition: 11/08/23
Time of Disposition: 18:09
Presentation/result/management discussed w/ accepting MD/DO: Hospitalist
Discharge Problem:
Pneumonia, Sepsis
Interventions
Interventions:
*Risk Screen - Suicide Last Done: 11/08/23 12:58
*General Assessment Last Done: 11/08/23 12:58
*Neglect/Abuse Screening Last Done: 11/08/23 12:58
ED- Fall Risk Assessment Last Done: 11/08/23 14:38
*ED COVID-19 Vaccine History Last Done: 11/08/23 14:44
ED- Pulmonary Assessment Last Done: 11/08/23 14:38
ED- Cardiac Assessment Last Done: 11/08/23 14:38
[2023-11-08 15:29] LABS: % Basophils 0.1 % (0-2); % Eosinophils 0.1 % (0-6); % Immature Granulocytes 0.5 % (0-0.5); % Lymphocytes 4.2 % (20.5-51.1); % Monocytes 0.5 % (1.7-9.3); % Neutrophils 94.6 % (42.2-75.2); Absolute Immature Granulocytes 0.1 10^3/uL (0-0.05); Absolute Lymphocytes 0.8 10^3/uL (1.2-3.4); Absolute Monocytes 0.1 10^3/uL (0.1-0.6); Absolute Neutrophils 18.6 10^3/uL (1.4-6.5); Hematocrit 33.6 % (37.0-47.0); Hemoglobin 10.9 g/dL (12.0-16.0); Mean Corp Hgb Conc. 32.4 g/dL (33.0-37.0); Mean Corpuscular Volume 83.4 fL (81.0-99.0); Mean Platelet Volume 9.1 fL (7.4-10.4); Nucleated Red Blood Cells % 0 %; Platelet Count 377 10^3/uL (130-400); Red Blood Cell Count 4.03 10^6/uL (4.20-5.40); Red Cell Dist. Width 19.2 % (11.5-14.5); White Blood Cell Count 19.7 10^3/uL (4.8-10.8)
[2023-11-08 15:49] LABS: D-Dimer 11.41 ug/mlFEU (0.00-0.50)
[2023-11-08 15:52] LABS: ALT (SGPT) 21 U/L (0-35); AST (SGOT) 85 U/L (14-36); Albumin 3.5 g/dl (3.5-5.0); Alkaline Phosphatase 298 U/L (38-126); Blood Urea Nitrogen 27 mg/dl (7-17); Calcium 9.1 mg/dl (8.4-10.2); Carbon Dioxide 25 mmol/L (22-30); Chloride 97 mmol/L (98-107); Estimated Creatinine Clearance 90 ml/min; Glucose 113 mg/dl (70-99); Potassium 3.9 mmol/L (3.5-5.1); Sodium 137 mmol/L (135-145); Total Bilirubin 1.1 mg/dl (0.2-1.3); Total Protein 6.9 g/dl (6.3-8.2); eGFR > 60.00
[2023-11-08 16:03] LABS: Troponin I < 0.012 ng/ml
[2023-11-08] MEDS: DILAUDID 2 MG IV (17:28)
--- NOTE | 2023-11-08 18:22 | HPS.HSE ---
Addendum entered and electronically signed by Kyler Prince DO 11/08/23 19:43:
Patient seen and examined independently. Agree with findings and plan as set forth by NAOMI Cowan.
Patient is a 47y F with PMH significant for metastatic colon cancer on active chemotherapy who presents to ED complaining of sore throat, cough and chest congestion x several days. Cough is productive of green sputum. Patient last had chemo on
Friday. She states that she does not receive G-CSF following her chemo sessions.
She has prior history of PE (? laterality) which was diagnosed in July of this year. She thought this was done here - though, we can find no records to corroborate this.
She has been on Eliquis since that time and is compliant with her dosing.
Imaging done in the ED today shows bibasilar opacities suspicious for pneumonia (? nodular metastatic disease) and L pulmonary embolism.
Ass:
Bibasilar Pneumonia
Sepsis secondary to the above
PE - Recurrent / Persistent
Metastatic Colon Cancer on Chemotherapy
Anemia of Chronic Disease
Anxiety / Depression
GERD
Plan:
Admit for further evaluation and treatment.
IV abx for bibasilar pneumonia. Follow temperature curve, cough, etc.
Follow for clinical improvement.
PE noted despite Eliquis therapy since July.
? persistent or recurrent PE. Unable to locate prior films for comparison.
Hold Eliquis for now. Begin IV heparin gtt acutely.
Patient may require Lovenox for adequate treatment / prevention of malignancy-associated thrombus.
Hematology evaluation for additional recommendations.
Continue usual outpatient medications including chronic steroids, pain control, etc.
Original Note:
Family Physician
-
Family Physician: Lori Hurley MD
Chief Complaint
-
Cough
Sore throat
History of Present Illness
47-year-old with past medical history for colon cancer on chemotherapy presented to us with congestion, cough and sore throat for past several days. Patient stated cough is very productive with greenish sputum. At times bloody sputum. Patient
denied any fever or chills, chest pain/she is complaining of short of breath. Patient denied any headache, dizziness, syncopal episode. Patient denied abdominal pain, nausea, vomiting, diarrhea. Patient denied dysuria hematuria.Patient follows
with [facility] and last received chemotherapy 3 days ago. She receives chemo Q2 weeks.
Chest x-ray and chest CT of chest with pneumonia. Patient received Vanco and cefepime in ER. Admitted for further management
Medical History
Past Medical History
Past Medical History: Reports Other
Additional Past Medical History:
Colon cancer
Past Surgical History: Reports Other
Additional Past Surgical History:
Bowel resection
Social History
Tobacco: Former Smoker
Alcohol: None
Drug: None
Living: With Family
Family History
Family History: Not pertinent
Allergies / Home Medications
Allergies reflects when Allergies were last updated in [facility].
Home Medications with original date entered in [facility]
Allergy/Medication List:
Allergies
Allergy/AdvReac Type Severity Reaction Status Date / Time
tramadol Allergy Nausea / Verified 07/21/23 14:30
Vomiting
Home Medications
apixaban 5 mg tablet (Eliquis) 5 mg PO BID 02/14/23
hydromorphone 4 mg tablet 4 mg PO Q4H PRN mild pain 02/14/23
hydromorphone 4 mg tablet 8 mg PO Q4H PRN severe pain 02/14/23
lorazepam 0.5 mg tablet 0.5 mg PO BIDPRN PRN anxiety 02/14/23
magnesium oxide 500 mg PO DAILY 02/14/23
miracle mouthwash 5 ml PO 4XD PRN sore throat #100 mL 02/14/23
ondansetron 8 mg disintegrating tablet 8 mg PO Q8H PRN nausea 02/14/23
sennosides 8.6 mg tablet (senna) 17.2 mg PO HS 02/14/23
fentanyl 50 mcg/hr transdermal patch 1 patch transdermal Q72H #5 ea 03/18/23
ondansetron 4 mg disintegrating tablet 4 mg PO Q8H PRN nausea and vomiting #10 tabs 03/18/23
hydromorphone 4 mg tablet (Dilaudid) 4 mg PO Q4H PRN Pain #14 tabs 07/21/23
Review of Systems
-
Constitutional: Reports No Symptoms
EENT: Reports No Symptoms
Respiratory: Reports Cough, Hemoptysis and Trouble Breathing
Cardiac: Reports No Symptoms
Abdomen/GI: Reports No Symptoms
: Reports No Symptoms
Musculoskeletal: Reports No Symptoms
Skin: Reports No Symptoms
Neurological: Reports No Symptoms
Endocrine: Reports No Symptoms
Hematologic/Lymphatic: Reports No Symptoms
Psych: Reports No Symptoms
Physical Exam
Vital Signs
Vital Signs
Temp Pulse Resp BP Pulse Ox
98.2 F 98 24 120/91 95
11/08/23 18:00 11/08/23 17:00 11/08/23 17:00 11/08/23 17:00 11/08/23 17:00
Physical Exam
General: Well Developed, Well Nourished and No Apparent Distress
HEENT: NormoCephalic, Moist mucous membranes and Atraumatic
Respiratory: Clear
Cardiac: S1/S2 and Regular Rhythm; No Murmur or Rub
GI: Soft, Non Tender, Non Distended and Normal Bowel Sounds; No Organomegaly
Rectal: Deferred by Provider
Musculoskeletal: No Clubbing, No Cyanosis and No Edema
Skin: No Rash
Neuro: AO x 3 and Nonfocal/grossly intact
Psych: Calm
Laboratory Results
-
11/08/23 15:14
11/08/23 15:14
Laboratory Results
Total Bilirubin 1.1 mg/dl (0.2-1.3) 11/08/23 15:14
AST 85 U/L (14-36) H 11/08/23 15:14
ALT 21 U/L (0-35) 11/08/23 15:14
Alkaline Phosphatase 298 U/L (38-126) H 11/08/23 15:14
Troponin I < 0.012 ng/ml 11/08/23 15:15
Data Reviewed
-
Lab Data: Labs Reviewed by me
Impression/Plan
-
#cough/sob and hemoptysis likely from pneumonia
#sepsis as evident by wbc, tachy
-covid flu negative, rapid strep negative
- CT with Examination is positive for pulmonary embolism involving the interlobar left pulmonary artery and extending into the lingular and left lower lobe pulmonary arteries.No evidence for significant right heart strain by CT.Parenchymal opacities
within both lower lungs, most likely pneumonia. Bronchial luminal filling within both lower lobes, which is likely on the basis of secretions.No significant pleural effusion bilaterally.Mild to moderate elevation right hemidiaphragm with adjacent
compressive atelectasis within the inferior right lower lung.Extensive hepatic metastatic disease.Large amount of lymphadenopathy within the upper abdomen, surrounding the aorta and the celiac artery, which is likely neoplastic lymphadenopathy.
-chest x ray with Mild to moderate elevation of the right hemidiaphragm, new from prior CT of March 2023. Adjacent right base compressive atelectasis.Patchy airspace opacities within both lower lungs, likely representing pneumonia. No evidence
for associated pleural effusion.
-wbc 19.7
-iv cefepime and vanco in ER
-iv ceftriaxone and doxy continued
-Tessalon as needed for cough
-Tylenol as needed for fever and pain
-Trend WBCs
#anemia of chronic disease
-hgb stable at 10.9
-no active bleeding
-ctm
#elevated D dimer/PE
-CT with PE
-patient has hxt of PE diagnosed in July 2023
-hold eliquis
-initiated on heparin drip
#hxt of colon ca
-last chemo 3 days ago
-gets chemo every 2 weeks.
-dexamethasone continued
-Dilaudid,methadone,Lyrica continued for pain
#depression
-duloxetine, lorazepam,olanzapine continued
#GERD
-PPI continued
#LE edema
-furosemide held
# DVT prophylaxis
-Eliquis continued
# CODE STATUS
-Full code
[2023-11-08] MEDS: MAXIPIME 2000 MG IV (18:24)
[2023-11-08] MEDS: VANCOCIN 200 IV (18:25)
[2023-11-08 19:47] LABS: APTT 37.2 Sec (23.4-35.0)
[2023-11-08] MEDS: HEPARIN 25000 UNITS/250 ML IV (20:03)
--- NOTE | 2023-11-08 21:30 | PTCARENOTE ---
Received pt from ED via stretcher. Pt ambulated to bed with assist x1. AAOx3. Pt complained of lower back pain, see MAR. Pt mother at bedside. VSS. CHILDS. Assessed and oriented to room. Pt verbalized understanding of call ayon. Call yaon within close
reach. Will continue to monitor.
--- NOTE | 2023-11-08 21:30 | TRANSFER ---
Received pt from ED via stretcher. Pt ambulated to bed with assist x1. AAOx3. Pt complained of lower back pain, see MAR. Pt mother at bedside. VSS. CHILDS. Heparin gtt running at 9 mL/hr. Assessed and oriented to room. Pt verbalized understanding of
call ayon. Call ayon within close reach. Will continue to monitor.
[2023-11-08] MEDS: VIBRAMYCIN 100 MG PO (21:58)
[2023-11-08] MEDS: ZYPREXA 5 MG PO (21:58)
[2023-11-08] MEDS: LYRICA 50 MG PO (21:58)
[2023-11-08] MEDS: NSS 1000 IV (21:58)
[2023-11-08] MEDS: TYLENOL 650 MG PO (22:07)
[2023-11-08] MEDS: TESSALON PERLES 200 MG PO (22:07)
[2023-11-08] MEDS: DECADRON 1 MG PO (23:00)
[2023-11-08] MEDS: ROCEPHIN 1000 MG IV (23:01)
[2023-11-08] MEDS: DOLOPHINE 10 MG PO (23:01)
[2023-11-08] MEDS: STERILE WATER FOR INJECTION 10 ML IV (23:01)
[2023-11-09 03:07] LABS: APTT 61.7 Sec (23.4-35.0)
[2023-11-09] MEDS: HEPARIN 3900 UNITS IV ×2 (03:22→18:19)
[2023-11-09 03:40] VITALS: BP 123/81
--- NOTE | 2023-11-09 03:56 | PTCARENOTE ---
HR elevated on ambulation, 160's. Pt asymptomatic. SECONDARY SET UP MAN made aware. Will encourage BSC.
[2023-11-09] MEDS: DECADRON 1 MG PO ×3 (05:58→17:00)
[2023-11-09 07:00] VITALS: BP 132/94
[2023-11-09] MEDS: CYMBALTA DELAYED RELEASE 30 MG PO (08:41)
[2023-11-09] MEDS: PEPCID 40 MG PO (08:41)
[2023-11-09] MEDS: VIBRAMYCIN 100 MG PO ×2 (08:42→20:42)
[2023-11-09] MEDS: DOLOPHINE 10 MG PO ×2 (08:42→17:00)
[2023-11-09] MEDS: DILAUDID 12 MG PO ×2 (08:46→17:03)
[2023-11-09] MEDS: NSS 1000 IV ×2 (08:47→22:30)
[2023-11-09 09:49] LABS: Hematocrit 36.3 % (37.0-47.0); Hemoglobin 11.7 g/dL (12.0-16.0); Mean Corp Hgb Conc. 32.2 g/dL (33.0-37.0); Mean Corpuscular Hgb 26.7 pg (27.0-31.0); Mean Corpuscular Volume 82.9 fL (81.0-99.0); Mean Platelet Volume 9.1 fL (7.4-10.4); Platelet Count 322 10^3/uL (130-400); Red Blood Cell Count 4.38 10^6/uL (4.20-5.40); Red Cell Dist. Width 19.5 % (11.5-14.5); White Blood Cell Count 14.1 10^3/uL (4.8-10.8)
[2023-11-09 10:00] LABS: APTT 74.8 Sec (23.4-35.0)
[2023-11-09 10:19] LABS: Blood Urea Nitrogen 22 mg/dl (7-17); Calcium 8.9 mg/dl (8.4-10.2); Carbon Dioxide 25 mmol/L (22-30); Chloride 98 mmol/L (98-107); Estimated Creatinine Clearance 86 ml/min; Glucose 110 mg/dl (70-99); Potassium 3.5 mmol/L (3.5-5.1); Sodium 137 mmol/L (135-145); eGFR > 60.00
[2023-11-09] MEDS: CATHFLO/ACTIVASE 2 MG INTRACATH (10:25)
[2023-11-09 11:00] VITALS: BP 115/85
--- NOTE | 2023-11-09 11:26 | VATNOTE ---
Attempted to aspirate port, sluggish blood return. Allowing alteplase to in-dwell for another hour.
[2023-11-09 11:35] VITALS: BMI 18.5
[2023-11-09] MEDS: STERILE WATER FOR INJECTION 10 ML IV (11:35)
--- NOTE | 2023-11-09 11:44 | CON.ONC ---
Impression
Impression
Colon cancer with radiographic progression compared with 03/2023 scan (personally reviewed films), 'end-stage' in pt's words
Pulmonary embolism, chronicity unclear but with possible Eliquis failure
Cachexia
Cancer-related pain
Plan
Plan
Agree with Lovenox as she appears to have failed Eliquis.
Significant disease progression noted on scan, pt states has been on multiple lines of therapy, currently on FOLFOX.
Discussed goals of care, suspect the cachexia, blood clot and pna are all manifestations of end-stage disease. Pt acknowledges that she would really rather be home but declines hospice consult.
Thank you for consult.
Patient History
History of Present Illness
47-year-old woman with metastatic colon cancer, currently on chemotherapy at an outside institution. Her last chemotherapy was on 11/04, did not get white blood cell growth factor. She has a history of pulmonary embolism in July of this year. She
presented to the [place] ER complaining of sore throat, cough and chest congestion. Imaging done in the ER showed bibasilar opacity suspicious for pneumonia versus nodular metastatic disease, and left pulmonary embolism. Patient reports
compliance with Eliquis since diagnosis of previous PE in July. Since hospitalization, she has been started on an IV heparin drip. The last prior imaging we have for her in the [facility] [place] system is from 03/18/2023, when she had soft tissue noted in
the aortocaval region measuring 1.9 cm, and precaval soft tissue measuring up to 2.2 cm. The current scan shows numerous low-density lesions throughout the liver and a large amount of adenopathy within upper abdomen.
Past-Medical/Surgical History
Medical History
Colon cancer
Surgical History
Bowel resection
Social History
Tobacco: Former Smoker
Alcohol: None
Drug: None
Living: With Family
Family History
Not pertinent
Patient Medication
�Medication �Instructions �Recorded �Confirmed �Last Taken �Type
apixaban 5 mg tablet (Eliquis) 5 mg PO BID 02/14/23 11/08/23 11/08/23 History
lorazepam 0.5 mg tablet 0.5 mg PO BIDPRN PRN anxiety 02/14/23 11/08/23 02/14/23 History
ondansetron 8 mg disintegrating 8 mg PO Q8HPRN PRN nausea 02/14/23 11/08/23 02/14/23 History
tablet
sennosides 8.6 mg tablet (senna) 8.6 mg PO DAILYPRN PRN constipation 02/14/23 11/08/23 02/13/23 History
cyanocobalamin (vitamin B-12) 1,000 mcg PO DAILY 11/08/23 11/08/23 11/08/23 History
1,000 mcg tablet
dexamethasone 0.5 mg/5 mL oral 1 mg PO Q6H 11/08/23 11/08/23 11/08/23 History
solution
duloxetine 30 mg capsule,delayed 30 mg PO DAILY 11/08/23 11/08/23 11/08/23 History
release sprinkle
famotidine 40 mg tablet 40 mg PO DAILY 11/08/23 11/08/23 11/08/23 History
folic acid 1 mg tablet 1 mg PO DAILY 11/08/23 11/08/23 11/08/23 History
furosemide 20 mg tablet 20 mg PO DAILY 11/08/23 11/08/23 11/08/23 History
hydromorphone 8 mg tablet 12 mg PO Q4HPRN PRN severe pain 11/08/23 11/08/23 11/08/23 History
methadone 10 mg tablet 10 mg PO Q8H 11/08/23 11/08/23 11/08/23 History
olanzapine 5 mg tablet 5 mg PO HS 11/08/23 11/08/23 11/07/23 History
pregabalin 50 mg capsule 50 mg PO HS 11/08/23 11/08/23 11/07/23 History
prochlorperazine maleate 10 mg 10 mg PO Q6HPRN PRN nausea 11/08/23 11/08/23 Unknown History
tablet
Active Medications
Generic Name Dose Route Start Last Admin
Trade Name Freq PRN Reason Stop Dose Admin
Acetaminophen 650 mg 11/08/23 21:09 11/08/23 22:07
Acetaminophen 325 Mg Tablet PO 12/06/23 21:08 650 mg
Q4HPRN PRN Administration
if temp > 101 F
Benzonatate 200 mg 11/08/23 21:09 11/08/23 22:07
Benzonatate 100 Mg Capsule PO 12/06/23 21:08 200 mg
TIDPRN PRN Administration
cough
Ceftriaxone Sodium 1,000 mg 11/09/23 00:00 11/08/23 23:01
Ceftriaxone 1000 Mg / 10 Ml Vial IV 1,000 mg
Q24H VIJAY Administration
Dexamethasone 1 mg 11/09/23 00:00 11/09/23 05:58
Dexamethasone 0.5 Mg Tablet PO 12/07/23 00:00 1 mg
Q6 VIJAY Administration
Doxycycline Hyclate 100 mg 11/08/23 22:00 11/09/23 08:42
Doxycycline 100 Mg Capsule PO 100 mg
BID VIJAY Administration
Duloxetine HCl 30 mg 11/09/23 08:00 11/09/23 08:41
Duloxetine Delayed Release 30 Mg Capsule PO 12/07/23 07:59 30 mg
DAILY VIJAY Administration
Famotidine 40 mg 11/09/23 08:00 11/09/23 08:41
Famotidine 40 Mg Tablet PO 12/07/23 07:59 40 mg
DAILY VIJAY Administration
Heparin Sodium 3,900 units 11/08/23 19:05 11/09/23 03:22
Heparin 80 Units/Kg Iv Rebolus IV 12/06/23 19:04 3,900 units
PRN PRN Administration
PTT < OR = 64 seconds
Heparin Sodium 2,000 units 11/08/23 19:05
Heparin 40 Units/Kg Iv Rebolus IV 12/06/23 19:04
PRN PRN
PTT = 64.1 to 72.9 seconds
Hydromorphone HCl 12 mg 11/08/23 21:09 11/09/23 08:46
Hydromorphone 4 Mg Tablet PO 12 mg
Q4HPRN PRN Administration
severe pain
Heparin Sodium 25,000 units in 250 mls @ 0 mls/hr 11/08/23 19:00 11/08/23 20:03
Heparin 45871 Units/250 Ml IV 250 mls
PER PROTOCOL VIJAY Administration
Protocol
Per Protocol
Sodium Chloride 1,000 mls @ 80 mls/hr 11/08/23 21:09 11/09/23 08:47
Nss IV 1,000 mls
.[id number] VIJAY Administration
Lorazepam 0.5 mg 11/08/23 21:09
Lorazepam 0.5 Mg Tablet PO 12/06/23 21:08
BIDPRN PRN
anxiety
Methadone HCl 10 mg 11/09/23 00:00 11/09/23 08:42
Methadone 10 Mg Tablet PO 11/23/23 00:00 10 mg
Q8 VIJAY Administration
Olanzapine 5 mg 11/08/23 22:00 11/08/23 21:58
Olanzapine 5 Mg Tablet PO 12/06/23 21:59 5 mg
HS VIJAY Administration
Pregabalin 50 mg 11/08/23 22:00 11/08/23 21:58
Pregabalin 50 Mg Capsule PO 12/06/23 21:59 50 mg
HS VIJAY Administration
Sodium Chloride 0 flush 11/08/23 20:00
Sodium Chloride 0.9% (Flush) Syringe IV 12/06/23 19:59
PER PROTOCOL VIJAY
Review of Systems
-
reports severe pain in b/l legs precluding ambulation
History Source: Patient
Physical Exam
-
Cachectic
Labs
Lab Results
WBC 14.1 10^3/uL (4.8-10.8) H 11/09/23 09:30
RBC 4.38 10^6/uL (4.20-5.40) 11/09/23 09:30
Hgb 11.7 g/dL (12.0-16.0) L 11/09/23 09:30
Hct 36.3 % (37.0-47.0) L 11/09/23 09:30
MCV 82.9 fL (81.0-99.0) 11/09/23 09:30
MCH 26.7 pg (27.0-31.0) L 11/09/23 09:30
MCHC 32.2 g/dL (33.0-37.0) L 11/09/23 09:30
RDW 19.5 % (11.5-14.5) H 11/09/23 09:30
Plt Count 322 10^3/uL (130-400) 11/09/23 09:30
MPV 9.1 fL (7.4-10.4) 11/09/23 09:30
Abs Immat Gran (auto) 0.1 10^3/uL (0-0.05) H 11/08/23 15:14
Absolute Neuts (auto) 18.6 10^3/uL (1.4-6.5) H 11/08/23 15:14
Absolute Lymphs (auto) 0.8 10^3/uL (1.2-3.4) L 11/08/23 15:14
Absolute Monos (auto) 0.1 10^3/uL (0.1-0.6) 11/08/23 15:14
Absolute Eos (auto) 0.0 10^3/uL (0-0.7) 11/08/23 15:14
Absolute Basos (auto) 0.0 10^3/uL (0-0.2) 11/08/23 15:14
Immature Gran % 0.5 % (0-0.5) 11/08/23 15:14
Neutrophils % 94.6 % (42.2-75.2) H 11/08/23 15:14
Lymphocytes % 4.2 % (20.5-51.1) L 11/08/23 15:14
Monocytes % 0.5 % (1.7-9.3) L 11/08/23 15:14
Eosinophils % 0.1 % (0-6) 11/08/23 15:14
Basophils % 0.1 % (0-2) 11/08/23 15:14
Creatinine 0.6 mg/dL (0.6-1.0) 11/09/23 09:30
Vital Signs
Vital Signs
Temp Pulse Resp BP Pulse Ox
97.8 F 100 16 132/94 94
11/09/23 07:00 11/09/23 07:00 11/09/23 07:00 11/09/23 07:00 11/09/23 07:00
--- NOTE | 2023-11-09 11:55 | W.PN.HOSP.TC ---
Today's Communication/Plan
-
see outlined plan
Assessment / Plan
Assessment / Plan
Assessment:
Sepsis POA from Pneumonia (leukocytosis, tachycardia)
- CT: Parenchymal opacities within both lower lungs, most likely pneumonia. Bronchial luminal filling within both lower lobes, which is likely on the basis of secretions
- check cultures, MRSA swab
- empiric IV Rocephin, Doxy day 1
- supportive care, mucolytics, IS, Acapella
acute PE, with hemoptysis
- CT with pulmonary embolism involving the interlobar left pulmonary artery and extending into the lingular and left lower lobe pulmonary arteries. No evidence for significant right heart strain by CT.
- Previously on Eliquis, unsure at this time if Eliquis failure therefore started on IV Heparin (requires intensive monitoring of PTTs)
- check Venous Doppler
- Hematology/Oncology consult
Anemia of chronic disease
- hgb stable at 10.9
- no active bleeding; monitor
Colon cancer
- follow by [facility]; last chemo 3 days ago
- remains on Dexamethasone
- pain control with Dilaudid, methadone, Lyrica
Depression
- duloxetine, lorazepam,olanzapine continued
GERD
- PPI continued
LE edema
- furosemide held
- venous Doppler pending
DVT ppx: IV Heparin
Code: Full
Anticipated Discharge: > 48 hours
Subjective/Interval History
-
Date of Service: November 09, 2023
feeling slightly less tired, more energetic today. less dehydrated as well
Objective Data
-
Labs:
Laboratory Results
11/09/23 11/09/23 11/09/23
02:48 09:30 15:30
WBC 14.1 H
Hgb 11.7 L
Hct 36.3 L
Plt Count 322
APTT 61.7 H 74.8 H Pending
Sodium 137
Potassium 3.5
Chloride 98
Carbon Dioxide 25
BUN 22 H
Creatinine 0.6
Glucose 110 H
Calcium 8.9
Vital Signs:
Vital Signs
Temp Pulse Resp BP Pulse Ox
97.7 F 106 16 115/85 96
11/09/23 11:00 11/09/23 11:00 11/09/23 11:00 11/09/23 11:00 11/09/23 11:00
I&O
11/08/23 11/09/23 11/10/23
06:59 06:59 06:59
Intake Total 200 / 200
Output Total 250 / 250
Balance -50 / -50
Physical Exam
-
General: No Apparent Distress, Appears Chronically Ill and Cachectic
HEENT: Normocephalic and Atraumatic
Respiratory: Negative Wheezes
Cardiac: Regular Rhythm
GI: Soft
Genito-urinary: No Costovertebral Tender
Musculoskeletal: No Edema
Neuro: AO x 3
Hematologic / Lymphatic: No Lymphadenopathy
Psych: Calm
Data Reviewed
-
Total Time Spent with Patient (in minutes): 51
Labs: Labs Reviewed by me
--- NOTE | 2023-11-09 14:37 | CM ---
Alert awake oriented patient who lives alone with her mom Jade living next door. She lives in a 2 story home with 2 steps to enter and 20 steps to bed /bathroom.She is independent in in all activities of daily living except assisted with meds.
She uses a walker .She is with [facility].
Has [facility] VN/no SNF
Pharmacy [facility]
PCP DR Lori Hurley
PLAN Home with possible [facility] .
[2023-11-09 15:00] VITALS: BP 121/88
[2023-11-09 17:24] LABS: APTT 54.2 Sec (23.4-35.0)
[2023-11-09 19:00] VITALS: BP 119/86
[2023-11-09] MEDS: LYRICA 50 MG PO (20:46)
[2023-11-09] MEDS: ZYPREXA 5 MG PO (20:47)
[2023-11-09 23:00] VITALS: BP 131/94
[2023-11-10] VITALS (7 sets, daily range): BP systolic 113–137; BP diastolic 84–96; PULSE 104–144
[2023-11-10] MEDS: ROCEPHIN 1000 MG IV
[2023-11-10] MEDS: STERILE WATER FOR INJECTION 10 ML IV
[2023-11-10] MEDS: BENADRYL 25 MG IV (00:01)
[2023-11-10] MEDS: DECADRON 1 MG PO ×5 (00:01→23:08)
[2023-11-10] MEDS: DILAUDID 12 MG PO ×3 (06:04→20:50)
[2023-11-10 06:36] LABS: Blood Urea Nitrogen 15 mg/dl (7-17); Calcium 7.1 mg/dl (8.4-10.2); Carbon Dioxide 18 mmol/L (22-30); Chloride 109 mmol/L (98-107); Estimated Creatinine Clearance 86 ml/min; Glucose 86 mg/dl (70-99); Potassium 2.9 mmol/L (3.5-5.1); Sodium 138 mmol/L (135-145); eGFR > 60.00
[2023-11-10 08:00] LABS: Magnesium 1.7 mg/dl (1.6-2.3)
[2023-11-10] MEDS: DOLOPHINE 10 MG PO ×4 (08:14→23:08)
[2023-11-10] MEDS: KCL 40 MEQ PO (08:14)
[2023-11-10] MEDS: PEPCID 40 MG PO (08:14)
[2023-11-10] MEDS: CYMBALTA DELAYED RELEASE 30 MG PO (08:20)
[2023-11-10] MEDS: VIBRAMYCIN 100 MG PO (08:20)
[2023-11-10] MEDS: MAGNESIUM SULFATE 50 IV (08:26)
[2023-11-10] MEDS: LOVENOX 50 MG SC ×2 (08:36→20:50)
[2023-11-10 09:15] LABS: % Basophils 0.1 % (0-2); % Eosinophils 0.2 % (0-6); % Immature Granulocytes 0.5 % (0-0.5); % Lymphocytes 6.2 % (20.5-51.1); % Monocytes 0.4 % (1.7-9.3); % Neutrophils 92.6 % (42.2-75.2); Absolute Immature Granulocytes 0.1 10^3/uL (0-0.05); Absolute Lymphocytes 0.8 10^3/uL (1.2-3.4); Absolute Monocytes 0.1 10^3/uL (0.1-0.6); Absolute Neutrophils 11.8 10^3/uL (1.4-6.5); Hematocrit 32.8 % (37.0-47.0); Hemoglobin 10.7 g/dL (12.0-16.0); Mean Corp Hgb Conc. 32.6 g/dL (33.0-37.0); Mean Corpuscular Hgb 26.1 pg (27.0-31.0); Mean Platelet Volume 8.9 fL (7.4-10.4); Nucleated Red Blood Cells % 0 %; Platelet Count 266 10^3/uL (130-400); Red Cell Dist. Width 19.5 % (11.5-14.5); White Blood Cell Count 12.8 10^3/uL (4.8-10.8)
[2023-11-10] MEDS: COMPAZINE 5 MG IV (10:54)
--- NOTE | 2023-11-10 12:59 | W.PN.HOSP.TC ---
Today's Communication/Plan
-
switch to Levaqin
Swithc to Lovenox
Lovenox teaching by RN
Assessment / Plan
Assessment / Plan
47yo F with PMHx of metastatic colon CA on chemo (last cycle 4 days before admission), Hx pf pulmonary embolism came with cough and sore throat, found new pulmonary embolism and bibasilar opacities, managed for Eliquis failure - started on Lovenox -
and Pseudomonal pneumonia
A/P:
#Acute pulmonary embolism
As per Hem - cont Lovenox
Lovenox teaching
Not hypoxic and not hypotensive.
No tachycatdia - telemetry can be discontinued
#Oral thrush
start nistatin
no odynophagia
#Pseudomonal CAP
start Levaquin, monitor QTc with methadone
Pending final Cx
COVID-19, Influenza, Strep screen, legionella and s/pneumonia Ag neg
#Metastatic colon CA
cont to follow with previously established oncology
#MDD
cont home meds
#Hypokalemia
#Hypomagnesemia
hold lasix and replete
#Chronic LE swelling
no DVT on US
cont Lasix when able
#Anemia of chronic disease
follow CBC
DVT ppx - on therapeutic lovenox
Full code
I have spent at least 38min reviewing chart, test results, communication with consultants and direct patient care
Anticipated Discharge: 24 - 48 hours
Subjective/Interval History
-
Date of Service: November 10, 2023
Objective Data
-
Labs:
Laboratory Results
11/10/23 11/10/23
05:54 09:02
WBC Cancelled 12.8 H
Hgb Cancelled 10.7 L
Hct Cancelled 32.8 L
Plt Count Cancelled 266
APTT Cancelled 44.0 H
Sodium 138
Potassium 2.9 L
Chloride 109 H
Carbon Dioxide 18 L
BUN 15
Creatinine 0.4 L
Glucose 86
Calcium 7.1 L D
Vital Signs:
Vital Signs
Temp Pulse Resp BP Pulse Ox
97.7 F 104 17 134/96 96
11/10/23 11:05 11/10/23 11:05 11/10/23 11:05 11/10/23 11:05 11/10/23 11:05
I&O
11/09/23 11/10/23 11/11/23
06:59 06:59 06:59
Intake Total 200 / 200 2119
Output Total 250 / 250
Balance -50 / -50 2119
Review of Systems
-
History Source: Patient
All other systems: Reviewed and negative
EENT: Reports Sore Throat
Respiratory: Reports Cough
Physical Exam
-
General: No Apparent Distress
HEENT: Normocephalic
Respiratory: Clear to Auscultation
Cardiac: Regular Rhythm
GI: Soft, Nontender and Nondistended
Skin: Warm
Neuro: Awake, Alert, Oriented and AO x 3
Psych: Calm
[2023-11-10] MEDS: MYCOSTATIN ORAL SUSPENSION 5 ML PO ×3 (13:02→20:52)
[2023-11-10] MEDS: LEVAQUIN 750 MG PO (14:08)
[2023-11-10] MEDS: FIRST-MOUTHWASH BLM SUSPENSION 5 ML PO (18:41)
--- NOTE | 2023-11-10 19:58 | PTCARENOTE ---
Lab informed this RN of critical blood cx, result=gram-stain positive culture in process. ENVIRONMENTAL STUDIES PROGRAM DIRECTOR made aware, no new orders provided.
[2023-11-10] MEDS: TESSALON PERLES 200 MG PO (20:50)
[2023-11-10] MEDS: LYRICA 50 MG PO (20:51)
[2023-11-10] MEDS: ZYPREXA 5 MG PO (20:52)
[2023-11-11 03:00] VITALS: BP 130/91
[2023-11-11] MEDS: DECADRON 1 MG PO ×4 (05:59→23:11)
[2023-11-11 07:45] VITALS: BP 138/98
[2023-11-11 08:01] LABS: % Basophils 0.1 % (0-2); % Eosinophils 0.4 % (0-6); % Immature Granulocytes 0.7 % (0-0.5); % Monocytes 1.1 % (1.7-9.3); % Neutrophils 88.7 % (42.2-75.2); Absolute Immature Granulocytes 0.1 10^3/uL (0-0.05); Absolute Lymphocytes 0.9 10^3/uL (1.2-3.4); Absolute Monocytes 0.1 10^3/uL (0.1-0.6); Absolute Neutrophils 8.6 10^3/uL (1.4-6.5); Hematocrit 30.1 % (37.0-47.0); Hemoglobin 9.7 g/dL (12.0-16.0); Mean Corp Hgb Conc. 32.2 g/dL (33.0-37.0); Mean Corpuscular Hgb 26.2 pg (27.0-31.0); Mean Corpuscular Volume 81.4 fL (81.0-99.0); Mean Platelet Volume 9.5 fL (7.4-10.4); Nucleated Red Blood Cells % 0 %; Platelet Count 211 10^3/uL (130-400); Red Cell Dist. Width 19.4 % (11.5-14.5); White Blood Cell Count 9.7 10^3/uL (4.8-10.8)
[2023-11-11] MEDS: MYCOSTATIN ORAL SUSPENSION 5 ML PO ×4 (08:10→21:45)
[2023-11-11] MEDS: PEPCID 40 MG PO (08:10)
[2023-11-11] MEDS: LEVAQUIN 750 MG PO (08:10)
[2023-11-11] MEDS: LOVENOX 50 MG SC ×2 (08:10→21:45)
[2023-11-11] MEDS: DOLOPHINE 10 MG PO ×3 (08:10→23:11)
[2023-11-11] MEDS: CYMBALTA DELAYED RELEASE 30 MG PO (08:10)
[2023-11-11 08:27] LABS: ALT (SGPT) 17 U/L (0-35); AST (SGOT) 59 U/L (14-36); Albumin 3.1 g/dl (3.5-5.0); Alkaline Phosphatase 262 U/L (38-126); Blood Urea Nitrogen 19 mg/dl (7-17); Calcium 8.7 mg/dl (8.4-10.2); Carbon Dioxide 27 mmol/L (22-30); Chloride 99 mmol/L (98-107); Estimated Creatinine Clearance 86 ml/min; Glucose 87 mg/dl (70-99); Potassium 3.9 mmol/L (3.5-5.1); Sodium 137 mmol/L (135-145); Total Bilirubin 0.8 mg/dl (0.2-1.3); Total Protein 6.1 g/dl (6.3-8.2); eGFR > 60.00
--- NOTE | 2023-11-11 09:00 | PN.CDI ---
CDI
- -
CDI:
Physician Documentation Request
Admit Date: 11/08/23 19:05
Dear Doctor Rodrick,
11/08 Oncology progress note includes a diagnosis of cachexia.
11/08 RD note states 'Chart reviewed due to consult pt with weight loss....During visit RD able to visualize protrusion of clavical, temporal wasting apparent ribs, fat loss over triceps, orbital area sunken in and temporal wasting. With < 75%
estimated needs > 1 month and observed muscle and fat wasting pt meets AND/ASPEN criteria for severe protein calorie malnutrition of chronic illness'
Based on the above information and your assessment, which of the following most accurately represents the patient's nutritional status?
Malnutrition (specify if mild, moderate or severe)
Cachexia without malnutrition
No nutritional deficiency
Other (please specify)
[place] Criteria (ACP Hospitalist 2017)
2 or more criteria must be present for either
non severe or severe malnutrition
Note that the criteria differs related to the
presence of an acute or chronic illness
Acute Illness Chronic Illness
Energy Intake Non Severe: <75% for >7 days Non Severe: <75% for >1 month
Severe: <50% for >5 days Severe: <75% for >1 month
Weight Loss Non Severe: 1-2% over 1 week Non Severe: 5% over 1 month
5% over 1 month 7.5% over 3 months
7.5% over 3 months 10% over 6 months
1 year N/A 20% over 1 year
Severe: >2% over 1 week Severe: >5% over 1 month
>5% over 1 month >7.5% over 3 months
>7.5% over 3 months >10% over 6 months
1 year N/A >20% over 1 year
Body Fat Non Severe: Mild Decrease Non Severe: Mild Loss
Severe: Moderate Decrease Severe: Severe Loss
Muscle Mass Non Severe: Mild Decrease Non Severe: Mild Loss
Severe: Moderate Decrease Severe: Severe Loss
Fluid Accumulation Non Severe: Mild Accumulation Non Severe: Mild Accumulation
Severe: Moderate to severe Severe: Moderate to severe
accumulation accumulation
Reduced Civil Geotechnical Engineer Strength Non Severe: N/A Non Severe: N/A
Severe: Measurably reduced Severe: Measurably reduced
Use of terms such as suspected, likely, concern for, or probable (associated with a specific diagnosis that is being evaluated, monitored, or treated as if it exists) are acceptable and can be coded in the inpatient setting, when documented at the
time of discharge.
Thank you,
Roxie Magallon RN, BSN
CDI Specialist
tiger text
Please use your independent medical judgment in providing your response.
[2023-11-11 11:57] VITALS: BP 130/96
--- NOTE | 2023-11-11 12:20 | W.PN.HOSP.TC ---
Today's Communication/Plan
-
cont Levaquin
ID cosnult
Assessment / Plan
Assessment / Plan
47yo F with PMHx of metastatic colon CA on chemo (last cycle 4 days before admission), Hx pf pulmonary embolism came with cough and sore throat, found new pulmonary embolism and bibasilar opacities, managed for Eliquis failure - started on Lovenox -
and Pseudomonal pneumonia
A/P:
#Acute pulmonary embolism
As per Hem - cont Lovenox
Lovenox teaching
Not hypoxic and not hypotensive.
#Oral thrush
start nystatin
no odynophagia
#Pseudomonal CAP
#Bacteremia in one set of Bcx
start Levaquin, monitor QTc with methadone
Pending final Cx
COVID-19, Influenza, Strep screen, legionella and s/pneumonia Ag neg
Since late bacteremia with GPC in only 1 set - most likely contaminant. will get ID opinion
#Metastatic colon CA
cont to follow with previously established oncology
#MDD
cont home meds
#Hypokalemia
#Hypomagnesemia
hold lasix and replete
#Chronic LE swelling
no DVT on US
cont Lasix
#Anemia of chronic disease
follow CBC
#Transaminitis
#Alk.phos elevation
no abd pain
most liekly 2/2 Ca and recent chemo
DVT ppx - on therapeutic lovenox
Full code
I have spent at least 38min reviewing chart, test results, communication with consultants and direct patient care
Anticipated Discharge: 24 - 48 hours
Subjective/Interval History
-
Date of Service: November 11, 2023
Objective Data
-
Labs:
Laboratory Results
11/11/23
07:09
WBC 9.7
Hgb 9.7 L
Hct 30.1 L
Plt Count 211 D
Sodium 137
Potassium 3.9 D
Chloride 99
Carbon Dioxide 27
BUN 19 H
Creatinine 0.6
Glucose 87
Calcium 8.7 D
Total Bilirubin 0.8
AST 59 H
ALT 17
Alkaline Phosphatase 262 H
Vital Signs:
Vital Signs
Temp Pulse Resp BP Pulse Ox
98.7 F 119 24 130/96 97
11/11/23 11:57 11/11/23 11:57 11/11/23 11:57 11/11/23 11:57 11/11/23 11:57
I&O
11/10/23 11/11/23 11/12/23
06:59 06:59 06:59
Intake Total 2119 240 / 240
Balance 2119 240 / 240
Review of Systems
-
History Source: Patient
All other systems: Reviewed and negative
Physical Exam
-
General: No Apparent Distress
HEENT: Normocephalic
Respiratory: Clear to Auscultation
GI: Soft, Nontender and Nondistended
Skin: Warm
Neuro: Awake, Alert, Oriented and AO x 3
Psych: Calm
[2023-11-11] MEDS: LASIX 20 MG PO (12:58)
--- NOTE | 2023-11-11 15:12 | CON.ID ---
Addendum entered and electronically signed by Isabel Leach MD 11/11/23 17:44:
I personally performed a history and physical exam of the patient and discussed management with the resident. I reviewed the resident's note and agree with the documented findings and plan of care HPI/CC with the following comments:
agree with hpi and histories
PE:
Constitutional: Cachectic
Cardiovascular: Regular Rate and S1/S2; Negative Murmur, Rub or Gallop
Pulmonary: CTA bilaterally on anterior exam, no rales or wheezes
Gastrointestinal: Non Tender, Non Distended and Normal Bowel Sounds
Skin: Warm
Psychological: Calm
DLOA: Port placed right shoulder, accessed, no erythema edema or surrounding tenderness
A&P
Pneumonia due to Pseudomonas
- switched to ciprofloxacin - a judgement call - my preference because we have cipro sensitivities not levofloxacin, it impacts the QTc less than levofloxacin and already on other qtc prolonging agents, and can be used in the respiratory tract when
the pathogen is known (though not a traditional 'respiratory fluroquinolone' as it should not be used when bacterial cause is unknown due to poor activity against s pneumo)
- reassess qtc in the AM
- further consideration of duration tomorrow
Oral Thrush
- agree with nystatin swish and swallow
Probable Contaminated blood cultures
- follow for ID of the GPCs, if CONS would consider a contaminant
AW
Original Note:
Chief Complaint / Past History
History of Present Illness
47yoF with a history of colon cancer on chemotherapy presenting with her mother for evaluation of URI symptoms x 2 days. Patient reports sore throat and productive cough for 2 days prior to hospital admission. Her cough is productive with copious
amounts of greenish sputum that is blood-tinged. Additionally she reported worsening of her shortness of breath. She always had baseline shortness of breath which she would get upon walking few blocks over the last several months but she noticed
that that she immediately got short of breath when she tried to walk and stand. She denies having fevers, chest pain, nausea, vomiting, palpitations, dysuria, urinary frequency or hesitancy. Patient sought PCP attention prior to ER visit where she
was noted to be tachypneic, tachycardic, hypoxic with oxygen saturations in low 80s and was sent to the ER for evaluation. She received chemotherapy 3 days prior (11/05/2023) to hospital admission with [facility] oncology and had chemotherapy frequency
scheduled every 2 weeks.
She was first diagnosed with colorectal carcinoma in 2018, underwent surgery and chemotherapy and was in remission until recent relapse and was started on chemotherapy. She was diagnosed with pulmonary embolism in July 2023 and was started on
Eliquis. Patient never missed a dose of Eliquis.
Upon arrival to the emergency room, patient was found to be afebrile, oxygen saturations at 90, tachycardic, tachypneic with soft blood pressures. Her WBC count-19.7 on 11/08/2019 4-9.7 on 11/11/2023. She has normocytic anemia with hemoglobin of
9.7, platelet count at 211, left shift.
Electrolytes on 11/07-within normal limits, potassium dropped down to 2.9 on 11/10/2023 and improved to 3.9 on 11/10 upon repletion. Elevated AST-85 on 11/07, improving, 59 on 11/10. Alkaline phosphatase levels were elevated and her total protein was
low. Oncology was consulted, her chest x-ray chest CT and peripheral vascular ultrasound were done-chest x-ray has evidence for pneumonia, chest CT has evidence for pulmonary embolism in the interlobar left pulmonary artery extending into the
lingular and left lobe pulmonary arteries, peripheral vascular ultrasound showed no evidence for DVT. Sputum cultures were positive for Pseudomonas aeruginosa, blood cultures obtained upon admission-preliminary 1 culture positive for Gram coccus
but the second 1 is negative for 48 hours.
Patient was given vancomycin and cefepime in the ER, and then was switched to ceftriaxone and doxycycline until 11/08. Based on sputum cultures she was switched to oral levofloxacin and her doxycycline was discontinued as of 11/11/2023. She was also
found to have oral thrush and was started on nystatin suspension beginning 11/09.
Past History
Past Medical History: Other (Rectal carcinoma diagnosed in 2019.)
Past Surgical History: Other (Colon cancer resection.)
Allergy History:
tramadol Allergy (Verified 07/21/23 14:30)
Nausea / Vomiting
Social History
Tobacco: Former Smoker (Smoked when she was in 20s less than half pack a day quit smoking more than 10 years ago.)
Alcohol: None
Drug: None and Narcotics (For pain)
Personal: Single
Living: With Family
Employment: Disabled
Family History
Family History: Not Pertinent
Review of Systems
Review of Systems
General: Change in Appetite; Negative Fever or Chills
HEENT: Negative Headache
Cardiovascular: Negative Chest Pain or Palpitations
Respiratory: Dyspnea, Cough and Sputum Production
Gasteroenterology: Negative Nausea or Vomiting
Genital / Urological: Negative Dysuria or Hematuria
Endocrine: Weakness and Fatigue
Musculoskeletal: Negative Joint Pain, Arthralgias or Myalgias
Skin / Hair / Nails: Negative Rash
Vital Signs
Temp Pulse Resp BP Pulse Ox
98.7 F 89 24 135/94 97
11/11/23 11:57 11/11/23 12:58 11/11/23 11:57 11/11/23 12:58 11/11/23 11:57
Physical Exam
Physical Exam
Constitutional: Cachetic and Other (Port placed on the right subclavian, reaccessed on 11/08. No erythema edema or surrounding tenderness.)
Pharynx: Benign; Negative Erythema
Oral: Thrush and No Ulcers
Cardiovascular: Regular Rate and S1/S2; Negative Murmur, Rub or Gallop
Pulmonary: Other (Dimished breath sounds on the left lower lobe.)
Gastrointestinal: Non Tender, Non Distended and Normal Bowel Sounds
Extremities: Edema (Minimal pedal edema on bilateral lower extremities.)
Skin: Warm
Neurological: Awake and Alert
Psychological: Calm
Lab / Diagnostic Study Results
11/11/23 07:09
11/11/23 07:09
Abs Immat Gran (auto) 0.1 10^3/uL (0-0.05) H 11/11/23 07:09
Absolute Neuts (auto) 8.6 10^3/uL (1.4-6.5) H 11/11/23 07:09
Absolute Lymphs (auto) 0.9 10^3/uL (1.2-3.4) L 11/11/23 07:09
Absolute Monos (auto) 0.1 10^3/uL (0.1-0.6) 11/11/23 07:09
Absolute Basos (auto) 0.0 10^3/uL (0-0.2) 11/11/23 07:09
Immature Gran % 0.7 % (0-0.5) H 11/11/23 07:09
Neutrophils % 88.7 % (42.2-75.2) H 11/11/23 07:09
Lymphocytes % 9.0 % (20.5-51.1) L 11/11/23 07:09
Monocytes % 1.1 % (1.7-9.3) L 11/11/23 07:09
Eosinophils % 0.4 % (0-6) 11/11/23 07:09
Basophils % 0.1 % (0-2) 11/11/23 07:09
Microbiology Results
Micro:
11/08/23 22:48 Respiratory Culture - Final
Sputum Pseudomonas aeruginosa
Gram Stain - Final
11/08/23 18:18 Blood Culture - Preliminary
Blood/Venous Positive culture in progress
Gram Stain - Preliminary
11/08/23 18:18 Blood Culture - Preliminary
Blood/Venous No Growth in 48 hours- Final report to follow
11/08/23 15:50 Streptococcus Screen (KRISTIE) - Final
Throat/Pharynx No Beta Hemolytic Streptococci Isolated
Streptococcus Rapid Screen - Final
Rapid Strep Screen (Group A) Negative
11/09/23 13:21 MRSA Screen - Final
Nose No Methicillin Resistant Staphylococcus aureus isolated.
11/09/23 08:14 Legionella Urinary Antigen - Final
Urine Negative for Legionella pneumophila Serogroup 1 antigen.
A negative result does not rule out the possiblity of
Legionella infection due to other serogroups or species of
Legionella. Clinical correlation is recommended.
Streptococcus pneumoniae Antigen (M - Final
Negative for Streptococcus pneumoniae antigen.
A negative result does not exclude infection with
Streptococcus pneumoniae. Clinical correlation is
recommended.
11/08/23 13:19 Influenza Types A & B (HORACE) - Final
Nasal Swab Negative for Influenza A & B, NAAT
Negative results must be combined with clinical observations
and patient history.
Nucleic Acid Amplification test (NAAT)performed on the
[employer] platform.
Peripheral vascular ultrasound-11/09/2023-
IMPRESSION: No evidence of deep venous thrombosis bilaterally.
Loss of respiratory phasicity of spectral Doppler waveforms bilaterally. Patient has known lymphadenopathy within the abdomen, and loss of phasicity may be due to compression of the IVC. Main differential considerations would be clot within the IVC
or iliac veins.
CT chest PE study-11/08/2023-
Examination is positive for pulmonary embolism involving the interlobar left pulmonary artery and extending into the lingular and left lower lobe pulmonary arteries.
No evidence for significant right heart strain by CT.
Parenchymal opacities within both lower lungs, most likely pneumonia. Bronchial luminal filling within both lower lobes, which is likely on the basis of secretions.
No significant pleural effusion bilaterally.
Mild to moderate elevation right hemidiaphragm with adjacent compressive atelectasis within the inferior right lower lung.
Extensive hepatic metastatic disease.
Large amount of lymphadenopathy within the upper abdomen, surrounding the aorta and the celiac artery, which is likely neoplastic lymphadenopathy.
Chest x-ray-11/08/2023-
Mild to moderate elevation of the right hemidiaphragm, new from prior CT of March 2023. Adjacent right base compressive atelectasis.
Patchy airspace opacities within both lower lungs, likely representing pneumonia. No evidence for associated pleural effusion.
Assessment / Plan
Assessment-
Subjective-cough improved, sputum production improved. Appetite much better. S/p 2 units of blood transfusion about 2 weeks ago.
Objective- WBC count-19.7 on 11/08/2019 4-9.7 on 11/11/2023. Normocytic anemia with hemoglobin of 9.7, platelet count at 211, left shift.
Electrolytes on 11/07-within normal limits, potassium dropped down to 2.9 on 11/10/2023 and improved to 3.9 on 11/10 upon repletion. Elevated AST-85 on 11/07, improving, 59 on 11/10. Alkaline phosphatase levels were elevated and her total protein was
low.
Blood cultures x 2-obtained at the same time, 1 culture positive for gram-positive coccus, other cultures negative for 48 hours.
Sputum culture-positive for Pseudomonas aeruginosa, antibiotic susceptibility-susceptible to ciprofloxacin not tested for levofloxacin.
Problem list-
Pneumonia secondary to Pseudomonas aeruginosa.
Concern for sepsis-likely contamination of blood culture.
Oral thrush
Plan-
Pneumonia-
Secondary to Pseudomonas aeruginosa.
Patient was on levofloxacin. Doxycycline was discontinued. Currently levofloxacin day 2. QTc monitoring so far negative.
Given the KRISTIE being positive for ciprofloxacin we will switch the patient to ciprofloxacin oral twice daily beginning tomorrow.
Concern for sepsis-
Blood cultures were drawn at the same time, one of the cultures was positive for gram-positive coccus while the other continues to remain negative for 48 hours so at this time I suspect there is some contamination to the specimen.
In case patient develops fevers, chills, worsening vital signs, worsening labs will reevaluate for sepsis.
Port access-clean no erythema no edema or tenderness.
Continue to monitor for worsening of symptoms.
Oral thrush-
Currently on nystatin swish and swallow.
[2023-11-11 15:17] VITALS: BP 130/90
--- NOTE | 2023-11-11 16:43 | CM ---
Reviewed chart, patient not able to participate in PT due to being tachy today.. Yesterday's PT looks close to baseline. Will follow for VN needs.
Plan: Case management will continue to follow and assist with discharge planning. Home with VN if indicated.
[2023-11-11] MEDS: DILAUDID 12 MG PO (18:11)
[2023-11-11 19:59] VITALS: BP 133/90
[2023-11-11] MEDS: ZYPREXA 5 MG PO (21:45)
[2023-11-11] MEDS: TESSALON PERLES 200 MG PO (21:45)
[2023-11-11] MEDS: FIRST-MOUTHWASH BLM SUSPENSION 5 ML PO (21:46)
[2023-11-11] MEDS: LYRICA 50 MG PO (21:46)
[2023-11-11 23:17] VITALS: BP 126/88
[2023-11-12 03:05] VITALS: BP 125/81
[2023-11-12] MEDS: DECADRON 1 MG PO ×4 (06:15→23:31)
[2023-11-12 07:46] VITALS: BP 133/102
[2023-11-12] MEDS: PEPCID 40 MG PO (07:58)
[2023-11-12] MEDS: CIPRO 500 MG PO ×2 (07:58→20:16)
[2023-11-12] MEDS: DOLOPHINE 10 MG PO ×3 (07:58→23:31)
--- NOTE | 2023-11-12 07:58 | W.PN.ONC2 ---
Today's Communication / Plan
-
Continue Lovenox (probably indefinitely unless she transitions to palliative care hospice alone).
Okay for D/C w F/U Dr. Clay Shah at [place].
Px poor.
Impression
Impression
Colon cancer with radiographic progression compared with 03/2023 scan (personally reviewed films), 'end-stage' in pt's words
Pulmonary embolism, chronicity unclear but with possible Eliquis failure
Cachexia
Cancer-related pain
Plan
Plan
Agree with Lovenox as she appears to have failed Eliquis.
Significant disease progression noted on scan, pt states has been on multiple lines of therapy, currently on FOLFOX.
Discussed goals of care, suspect the cachexia, blood clot and pna are all manifestations of end-stage disease. Pt acknowledges that she would really rather be home but declines hospice consult.
Subjective/Objective
Chief Complaint
ACS Heme
Subjective
No c/o. On Lovenox without issues. Able to self inject.
Vital Signs:
Vital Signs
Temp Pulse Resp BP Pulse Ox
98 F 122 16 133/102 97
11/12/23 07:46 11/12/23 07:46 11/12/23 07:46 11/12/23 07:46 11/12/23 07:46
Lab Results:
Laboratory Data
WBC 9.7 10^3/uL (4.8-10.8) 11/11/23 07:09
Hgb 9.7 g/dL (12.0-16.0) L 11/11/23 07:09
Plt Count 211 10^3/uL (130-400) D 11/11/23 07:09
APTT 44.0 Sec (23.4-35.0) H 11/10/23 09:02
eGFR > 60.00 11/11/23 07:09
Physical Exam
cachetic
Cardiology: S1 and S2
Pulmonary: Clear
[2023-11-12] MEDS: MYCOSTATIN ORAL SUSPENSION 5 ML PO ×4 (07:59→22:08)
[2023-11-12] MEDS: CYMBALTA DELAYED RELEASE 30 MG PO (07:59)
[2023-11-12] MEDS: LOVENOX 50 MG SC ×2 (07:59→20:16)
[2023-11-12] MEDS: LASIX 20 MG PO (08:00)
[2023-11-12 11:24] VITALS: BP 135/95
--- NOTE | 2023-11-12 12:34 | W.PN.HOSP.TC ---
Addendum entered and electronically signed by Jose Martin Mensah MD 11/12/23 13:00:
#GNC bacteremia in 1 set
Veillonella species
Original Note:
Today's Communication/Plan
-
pending Bcx result
Assessment / Plan
Assessment / Plan
47yo F with PMHx of metastatic colon CA on chemo (last cycle 4 days before admission), Hx pf pulmonary embolism came with cough and sore throat, found new pulmonary embolism and bibasilar opacities, managed for Eliquis failure - started on Lovenox.
Found Pseudomonal pneumonia - on Cipro by ID.
A/P:
#Acute pulmonary embolism
As per Hem - cont Lovenox
Lovenox teaching provided, patient comfortable with home injections
Not hypoxic and not hypotensive.
#Oral thrush
start nystatin
no odynophagia
#Pseudomonal CAP
#Bacteremia in one set of Bcx
start Cipro, monitor QTc with methadone
Pending final Cx
COVID-19, Influenza, Strep screen, legionella and s/pneumonia Ag neg
Since late bacteremia with GPC in only 1 set - most likely contaminant. will get ID opinion
#Metastatic colon CA
cont to follow with previously established oncology
#MDD
cont home meds
#Hypokalemia
#Hypomagnesemia
hold lasix and replete
#Chronic LE swelling
no DVT on US
cont Lasix
#Anemia of chronic disease
follow CBC
#Transaminitis
#Alk.phos elevation
no abd pain
most liekly 2/2 Ca and recent chemo
DVT ppx - on therapeutic lovenox
Full code
I have spent at least 38min reviewing chart, test results, communication with consultants and direct patient care
Anticipated Discharge: Within 24 hours
Subjective/Interval History
-
Date of Service: November 12, 2023
Objective Data
-
Labs:
Laboratory Results
11/12/23
11:58
WBC Pending
Hgb Pending
Hct Pending
Plt Count Pending
Sodium Pending
Potassium Pending
Chloride Pending
Carbon Dioxide Pending
BUN Pending
Creatinine Pending
Glucose Pending
Calcium Pending
Vital Signs:
Vital Signs
Temp Pulse Resp BP Pulse Ox
98.5 F 110 16 135/95 99
11/12/23 11:24 11/12/23 11:24 11/12/23 11:24 11/12/23 11:24 11/12/23 11:24
I&O
11/11/23 11/12/23 11/13/23
06:59 06:59 06:59
Intake Total 960 / 960
Balance 960 / 960
Review of Systems
-
History Source: Patient
All other systems: Reviewed and negative
Physical Exam
-
General: No Apparent Distress
HEENT: Normocephalic
Respiratory: Clear to Auscultation
Neuro: Awake, Alert, Oriented and AO x 3
[2023-11-12 12:39] LABS: Hematocrit 32.2 % (37.0-47.0); Hemoglobin 10.2 g/dL (12.0-16.0); Mean Corp Hgb Conc. 31.7 g/dL (33.0-37.0); Mean Corpuscular Hgb 25.6 pg (27.0-31.0); Mean Corpuscular Volume 80.7 fL (81.0-99.0); Mean Platelet Volume 9.9 fL (7.4-10.4); Platelet Count 207 10^3/uL (130-400); Red Blood Cell Count 3.99 10^6/uL (4.20-5.40); Red Cell Dist. Width 19.7 % (11.5-14.5)
[2023-11-12 13:17] LABS: Blood Urea Nitrogen 16 mg/dl (7-17); Calcium 8.9 mg/dl (8.4-10.2); Carbon Dioxide 26 mmol/L (22-30); Chloride 97 mmol/L (98-107); Estimated Creatinine Clearance 86 ml/min; Glucose 85 mg/dl (70-99); Potassium 3.7 mmol/L (3.5-5.1); Sodium 134 mmol/L (135-145); eGFR > 60.00
--- NOTE | 2023-11-12 13:44 | W.PN.ID1 ---
Addendum entered and electronically signed by Isabel Leach MD 11/12/23 17:30:
I saw and evaluated the patient. I reviewed the resident�s note and agree with findings and plan as documented in the resident�s note with the following additions/corrections.
SOAP
S:
afebrile
bp stable
sore throat improving
O
VSS:
Labs reviewed: wbc 11
hgb 10
plt 207
cr 0.6
11/07 1 of 2 sets of blood cultures veillonella
11/07 resp culture PSA
Qtc 457
Physical Exam
Constitutional: Cachectic
Cardiovascular: Regular Rate and S1/S2; Negative Murmur, Rub or Gallop
Pulmonary: CTA bilaterally on anterior exam, no rales or wheezes
Gastrointestinal: Non Tender, Non Distended and Normal Bowel Sounds
Skin: Warm
Psychological: Calm
DLOA: Port placed right shoulder, accessed, no erythema edema or surrounding tenderness
A&P
Pneumonia due to Pseudomonas
- switched to ciprofloxacin - a judgement call - my preference because we have cipro sensitivities not levofloxacin, it impacts the QTc less than levofloxacin and already on other qtc prolonging agents, and can be used in the respiratory tract when
the pathogen is known (though not a traditional 'respiratory fluroquinolone' as it should not be used when bacterial cause is unknown due to poor activity against s pneumo)
- reassess qtc in the AM
- plan 7 days total of rx 11/09-11/15
Oral Thrush
- agree with nystatin swish and swallow x10 days 11/09-11/18
Blood culture with Anaerobe Veillonella
- repeated blood cultures x2
- added metronidazole after the repeat blood cultures obtained - plan 5 day course also through 11/15
- suspect respiratory source, plan
Stable for dc from ID perspective
AW
Original Note:
Date of Service
Date of Service: November 12, 2023
Today's Communication
continue ciprofloxacin.
Blood cultures X 2 .
Assessment / Plan
Assessment-
Subjective-cough improved, sputum production improved. Appetite much better. S/p 2 units of blood transfusion about 2 weeks ago.
Objective-occasionally tachycardic, afebrile, occasionally hypertensive. WBC count-19.7 on 11/08/2023-9.7 on 11/11/2023, 11.1 on 11/12/23. Normocytic anemia with hemoglobin of 10.2, platelet count at 207, left shift.
Electrolytes on 11/07-within normal limits, potassium dropped down to 2.9 on 11/10/2023 and improved to 3.9 on 11/10 upon repletion, hyponatremia noted -134. Elevated AST-85 on 11/07, improving, 59 on 11/10. Alkaline phosphatase levels were elevated and
her total protein was low.
Blood cultures x 2-obtained at the same time, 1 culture positive for veillonella species, other cultures negative for 72 hours.
Sputum culture-positive for Pseudomonas aeruginosa, antibiotic susceptibility-susceptible to ciprofloxacin not tested for levofloxacin.
Problem list-
Pneumonia secondary to Pseudomonas aeruginosa.
Concern for sepsis-likely contamination of blood culture.
Oral thrush
Plan-
Pneumonia-
Secondary to Pseudomonas aeruginosa.
Patient was on levofloxacin. Doxycycline was discontinued. QTc monitoring so far negative.
ciprofloxacin day 2 - effective days of treatment - day 4.
Concern for sepsis-
Blood cultures were drawn at the same time, one of the cultures was positive for veillonella while the other continues to remain negative for 48 hours so at this time I suspect there is some contamination to the specimen.
leukocytosis and tachycardia - intermittent, recommended blood cultures x 2.
In case patient develops fevers, chills, worsening vital signs, worsening labs will reevaluate for sepsis.
Port access-clean no erythema no edema or tenderness.
Continue to monitor for worsening of symptoms.
Oral thrush-
Currently on nystatin swish and swallow.
Chief Complaint
-: Other (Cough with greenish sputum production)
Subjective / Review of Systems
Cough improved, shortness of breath, sore throat improved.
Review of Systems: No Fever, No Chills, No Headache, No Pharyngitis, No Stiff Neck, No Swollen Lymph Nodes, No Cough, No Sputum Production, No Chest Pain, No Palpitations, No Abdominal Pain, No Nausea and No Dysuria
Vital Signs / Physical Exam
Vital Signs
Vital Signs
Temp Pulse Resp BP Pulse Ox
98.5 F 110 16 135/95 99
11/12/23 11:24 11/12/23 11:24 11/12/23 11:24 11/12/23 11:24 11/12/23 11:24
Physical Exam
Physical Exam:
Constitutional: Cachetic and Other (Port placed on the right subclavian, reaccessed on 11/08. No erythema edema or surrounding tenderness.)
Pharynx: Benign; Negative Erythema
Oral: Thrush and No Ulcers
Cardiovascular: Regular Rate and S1/S2; Negative Murmur, Rub or Gallop
Pulmonary: b/l inspiratory wheezes across all lung lobes.
Gastrointestinal: Non Tender, Non Distended and Normal Bowel Sounds
Extremities: Edema (Minimal pedal edema on bilateral lower extremities.)
Skin: Warm
Neurological: Awake and Alert
Psychological: Calm
Objective Data
Lab Data
Lab Results
11/12/23 11:58
11/12/23 11:58
APTT 44.0 Sec (23.4-35.0) H 11/10/23 09:02
Estimated Creat Clear 86 ml/min 11/12/23 11:58
Total Bilirubin 0.8 mg/dl (0.2-1.3) 11/11/23 07:09
AST 59 U/L (14-36) H 11/11/23 07:09
ALT 17 U/L (0-35) 11/11/23 07:09
Alkaline Phosphatase 262 U/L (38-126) H 11/11/23 07:09
Most recent labs reviewed.
Chest X-Ray: Image Reviewed and Report Reviewed
CT Scan: Image Reviewed and Report Reviewed
Microbiology: Report Reviewed
Micro Results:
11/08/23 18:18 Blood Culture - Preliminary
Blood/Venous Veillonella species
Gram Stain - Preliminary
11/08/23 18:18 Blood Culture - Preliminary
Blood/Venous No Growth in 72 hours- Final report to follow
11/08/23 22:48 Respiratory Culture - Final
Sputum Pseudomonas aeruginosa
Gram Stain - Final
11/08/23 15:50 Streptococcus Screen (KRISTIE) - Final
Throat/Pharynx No Beta Hemolytic Streptococci Isolated
Streptococcus Rapid Screen - Final
Rapid Strep Screen (Group A) Negative
11/09/23 13:21 MRSA Screen - Final
Nose No Methicillin Resistant Staphylococcus aureus isolated.
11/09/23 08:14 Legionella Urinary Antigen - Final
Urine Negative for Legionella pneumophila Serogroup 1 antigen.
A negative result does not rule out the possiblity of
Legionella infection due to other serogroups or species of
Legionella. Clinical correlation is recommended.
Streptococcus pneumoniae Antigen (M - Final
Negative for Streptococcus pneumoniae antigen.
A negative result does not exclude infection with
Streptococcus pneumoniae. Clinical correlation is
recommended.
11/08/23 13:19 Influenza Types A & B (HORACE) - Final
Nasal Swab Negative for Influenza A & B, NAAT
Negative results must be combined with clinical observations
and patient history.
Nucleic Acid Amplification test (NAAT)performed on the
[employer]. platform.
Peripheral vascular ultrasound-11/09/2023-
IMPRESSION: No evidence of deep venous thrombosis bilaterally.
Loss of respiratory phasicity of spectral Doppler waveforms bilaterally. Patient has known lymphadenopathy within the abdomen, and loss of phasicity may be due to compression of the IVC. Main differential considerations would be clot within the IVC
or iliac veins.
CT chest PE study-11/08/2023-
Examination is positive for pulmonary embolism involving the interlobar left pulmonary artery and extending into the lingular and left lower lobe pulmonary arteries.
No evidence for significant right heart strain by CT.
Parenchymal opacities within both lower lungs, most likely pneumonia. Bronchial luminal filling within both lower lobes, which is likely on the basis of secretions.
No significant pleural effusion bilaterally.
Mild to moderate elevation right hemidiaphragm with adjacent compressive atelectasis within the inferior right lower lung.
Extensive hepatic metastatic disease.
Large amount of lymphadenopathy within the upper abdomen, surrounding the aorta and the celiac artery, which is likely neoplastic lymphadenopathy.
Chest x-ray-11/08/2023-
Mild to moderate elevation of the right hemidiaphragm, new from prior CT of March 2023. Adjacent right base compressive atelectasis.
Patchy airspace opacities within both lower lungs, likely representing pneumonia. No evidence for associated pleural effusion.
[2023-11-12] MEDS: DILAUDID 12 MG PO (14:18)
[2023-11-12 15:49] VITALS: BP 134/85
[2023-11-12] MEDS: FLAGYL 500 MG PO (17:14)
[2023-11-12 19:10] VITALS: BP 117/84
[2023-11-12] MEDS: LYRICA 50 MG PO (22:08)
[2023-11-12] MEDS: ZYPREXA 5 MG PO (22:08)
[2023-11-12 23:00] VITALS: BP 126/88
[2023-11-13 03:00] VITALS: BP 117/91
[2023-11-13] MEDS: DECADRON 1 MG PO (06:38)
[2023-11-13] MEDS: FLAGYL 500 MG PO (06:39)
[2023-11-13 06:56] VITALS: BMI 18.1
[2023-11-13 07:00] VITALS: BP 127/89
[2023-11-13 08:10] LABS: Hematocrit 27.9 % (37.0-47.0); Mean Corp Hgb Conc. 32.3 g/dL (33.0-37.0); Mean Corpuscular Hgb 25.8 pg (27.0-31.0); Mean Corpuscular Volume 79.9 fL (81.0-99.0); Mean Platelet Volume 9.4 fL (7.4-10.4); Platelet Count 162 10^3/uL (130-400); Red Blood Cell Count 3.49 10^6/uL (4.20-5.40); Red Cell Dist. Width 19.4 % (11.5-14.5); White Blood Cell Count 8.7 10^3/uL (4.8-10.8)
--- NOTE | 2023-11-13 08:11 | W.PN.ID1 ---
Addendum entered and electronically signed by Isabel Leach MD 11/13/23 14:28:
Nonbillable note: I reviewed the patients chart however, patient discharged before I rounded on the patient. I reviewed the resident�s note and agree with findings and plan as documented in the resident�s note.
A&P
Pneumonia due to Pseudomonas
- c/w ciprofloxacin x 7 days total of rx 11/09-11/15
Oral Thrush
- agree with nystatin swish and swallow x10 days 11/09-11/18
Blood culture with Anaerobe Veillonella
- repeated blood cultures x2 remain no growth to date
- added metronidazole after the repeat blood cultures obtained - plan 5 day course also through 11/15
- suspect respiratory source
Stable for dc from ID perspective
AW
Original Note:
Date of Service
Date of Service: November 13, 2023
Today's Communication
Stable for discharge from ID perspective.
Metronidazole oral 500mg BID for 5 days
Ciprofloxacin 500mg BID for 5 days.
Assessment / Plan
Assessment-
Subjective-cough improved, sputum production improved. Appetite much better. S/p 2 units of blood transfusion about 2 weeks ago.
Objective-occasionally tachycardic, afebrile, occasionally hypertensive. WBC count-19.7 on 11/08/2023-9.7 on 11/11/2023, 11.1 on 11/12/23. Normocytic anemia with hemoglobin of 10.2, platelet count at 207, left shift.
Electrolytes on 11/07-within normal limits, potassium dropped down to 2.9 on 11/10/2023 and improved to 3.9 on 11/10 upon repletion, hyponatremia noted -134. Elevated AST-85 on 11/07, improving, 59 on 11/10. Alkaline phosphatase levels were elevated and
her total protein was low.
Blood cultures x 2-obtained at the same time, 1 culture positive for veillonella species, other cultures negative for 72 hours.
Sputum culture-positive for Pseudomonas aeruginosa, antibiotic susceptibility-susceptible to ciprofloxacin not tested for levofloxacin.
Problem list-
Pneumonia secondary to Pseudomonas aeruginosa.
Concern for sepsis-likely contamination of blood culture.
Oral thrush
Plan-
Pneumonia-
Secondary to Pseudomonas aeruginosa.
Patient was on levofloxacin. Doxycycline was discontinued. QTc monitoring so far negative.
ciprofloxacin day 2 - effective days of treatment - day 4.
Concern for sepsis-
Blood cultures were drawn at the same time, one of the cultures was positive for veillonella while the other continues to remain negative for 48 hours so at this time I suspect there is some contamination to the specimen.
leukocytosis and tachycardia - intermittent, repeat blood cultures x 2 still pending. Recommend oral metronidazole for 5 days.
In case patient develops fevers, chills, worsening vital signs, worsening labs will reevaluate for sepsis.
Port access-clean no erythema no edema or tenderness.
Continue to monitor for worsening of symptoms.
Oral thrush-
Currently on nystatin swish and swallow.
Chief Complaint
-: Other (Cough with greenish sputum production)
Subjective / Review of Systems
Review of Systems: No Fever, No Chills, No Headache, No Pharyngitis, No Cough, No Sputum Production, No Chest Pain, No Palpitations, No Nausea, No Diarrhea and No Dysuria
Vital Signs / Physical Exam
Vital Signs
Vital Signs
Temp Pulse Resp BP Pulse Ox
98.5 F 98 16 117/91 97
11/13/23 03:00 11/13/23 03:00 11/13/23 03:00 11/13/23 03:00 11/13/23 03:00
Physical Exam
Constitutional: Comfortable and Cachetic
Cardiovascular: Regular Rate and S1/S2; Negative Murmur, Rub or Gallop
Pulmonary: Clear; Negative Wheezes, Rales or Rhonchi
Gastrointestinal: Soft and Normal Bowel Sounds; Negative Non Tender or Non Distended
Extremities: Edema (mild erythema in lower extremities.)
Skin: Warm
Neurological: Awake and Alert
Psychological: Calm
Objective Data
Lab Data
Lab Results
11/13/23 07:16
APTT 44.0 Sec (23.4-35.0) H 11/10/23 09:02
Estimated Creat Clear 86 ml/min 11/12/23 11:58
Total Bilirubin 0.8 mg/dl (0.2-1.3) 11/11/23 07:09
AST 59 U/L (14-36) H 11/11/23 07:09
ALT 17 U/L (0-35) 11/11/23 07:09
Alkaline Phosphatase 262 U/L (38-126) H 11/11/23 07:09
Most recent labs reviewed.
CT Scan: Image Reviewed and Report Reviewed
Microbiology: Report Reviewed
Micro Results:
11/08/23 18:18 Blood Culture - Preliminary
Blood/Venous No Growth in 4 days- Final report to follow
11/12/23 14:32 Blood Culture - Pending
Blood/Venous
11/12/23 13:39 Blood Culture - Pending
Blood/Venous
11/08/23 18:18 Blood Culture - Preliminary
Blood/Venous Veillonella species
Gram Stain - Preliminary
11/08/23 22:48 Respiratory Culture - Final
Sputum Pseudomonas aeruginosa
Gram Stain - Final
11/08/23 15:50 Streptococcus Screen (KRISTIE) - Final
Throat/Pharynx No Beta Hemolytic Streptococci Isolated
Streptococcus Rapid Screen - Final
Rapid Strep Screen (Group A) Negative
11/09/23 13:21 MRSA Screen - Final
Nose No Methicillin Resistant Staphylococcus aureus isolated.
11/09/23 08:14 Legionella Urinary Antigen - Final
Urine Negative for Legionella pneumophila Serogroup 1 antigen.
A negative result does not rule out the possiblity of
Legionella infection due to other serogroups or species of
Legionella. Clinical correlation is recommended.
Streptococcus pneumoniae Antigen (M - Final
Negative for Streptococcus pneumoniae antigen.
A negative result does not exclude infection with
Streptococcus pneumoniae. Clinical correlation is
recommended.
11/08/23 13:19 Influenza Types A & B (HORACE) - Final
Nasal Swab Negative for Influenza A & B, NAAT
Negative results must be combined with clinical observations
and patient history.
Nucleic Acid Amplification test (NAAT)performed on the
[employer] platform.
Peripheral vascular ultrasound-11/09/2023-
IMPRESSION: No evidence of deep venous thrombosis bilaterally.
Loss of respiratory phasicity of spectral Doppler waveforms bilaterally. Patient has known lymphadenopathy within the abdomen, and loss of phasicity may be due to compression of the IVC. Main differential considerations would be clot within the IVC
or iliac veins.
CT chest PE study-11/08/2023-
Examination is positive for pulmonary embolism involving the interlobar left pulmonary artery and extending into the lingular and left lower lobe pulmonary arteries.
No evidence for significant right heart strain by CT.
Parenchymal opacities within both lower lungs, most likely pneumonia. Bronchial luminal filling within both lower lobes, which is likely on the basis of secretions.
No significant pleural effusion bilaterally.
Mild to moderate elevation right hemidiaphragm with adjacent compressive atelectasis within the inferior right lower lung.
Extensive hepatic metastatic disease.
Large amount of lymphadenopathy within the upper abdomen, surrounding the aorta and the celiac artery, which is likely neoplastic lymphadenopathy.
Chest x-ray-11/08/2023-
Mild to moderate elevation of the right hemidiaphragm, new from prior CT of March 2023. Adjacent right base compressive atelectasis.
Patchy airspace opacities within both lower lungs, likely representing pneumonia. No evidence for associated pleural effusion.
--- NOTE | 2023-11-13 08:20 | W.PN.HOSP.TC ---
Addendum entered and electronically signed by Jose Martin Mensah MD 11/13/23 10:21:
#Cachexia 2/2 CA
Supplement with Ensure
Original Note:
Today's Communication/Plan
-
dc
Assessment / Plan
Assessment / Plan
47yo F with PMHx of metastatic colon CA on chemo (last cycle 4 days before admission), Hx pf pulmonary embolism came with cough and sore throat, found new pulmonary embolism and bibasilar opacities, managed for Eliquis failure - started on Lovenox.
Found Pseudomonal pneumonia - on Cipro by ID. Bcx grew Veillonella species so ID started patient on Metronidazole and repeated Bcx. As agreement with ID - patient is medically stable for d/c home. She knows that if repeated Bcx will result with
infection - she has to come back. Meanwhile - no fevers, resolved leukocytosis.
A/P:
#Acute pulmonary embolism
As per Hem - cont Lovenox
Lovenox teaching provided, patient comfortable with home injections
Not hypoxic and not hypotensive.
#Oral thrush
start nystatin
no odynophagia
#Pseudomonal CAP
#Bacteremia in one set of Bcx most likely 2/2 pneumonia
start Cipro, monitor QTc with methadone
COVID-19, Influenza, Strep screen, legionella and s/pneumonia Ag neg
Since late bacteremia with [facility] bacteremia in 1 set: Veillonella species
#Metastatic colon CA
cont to follow with previously established oncology
#MDD
cont home meds
#Hypokalemia
#Hypomagnesemia
hold lasix and replete
#Chronic LE swelling
no DVT on US
cont Lasix
#Anemia of chronic disease
follow CBC
#Transaminitis
#Alk.phos elevation
no abd pain
most liekly 2/2 Ca and recent chemo
DVT ppx - on therapeutic lovenox
Full code
I have spent at least 38min reviewing chart, test results, communication with consultants and direct patient care
Anticipated Discharge: Today
Subjective/Interval History
-
Date of Service: November 13, 2023
Objective Data
-
Labs:
Laboratory Results
11/13/23
07:16
WBC 8.7
Hgb 9.0 L
Hct 27.9 L
Plt Count 162 D
Sodium Pending
Potassium Pending
Chloride Pending
Carbon Dioxide Pending
BUN Pending
Creatinine Pending
Glucose Pending
Calcium Pending
Vital Signs:
Vital Signs
Temp Pulse Resp BP Pulse Ox
98.5 F 98 16 117/91 97
11/13/23 03:00 11/13/23 03:00 11/13/23 03:00 11/13/23 03:00 11/13/23 03:00
I&O
11/12/23 11/13/23 11/14/23
06:59 06:59 06:59
Intake Total 960 / 960 1440 / 1440
Balance 960 / 960 1440 / 1440
Review of Systems
-
History Source: Patient
All other systems: Reviewed and negative
Physical Exam
-
General: No Apparent Distress
HEENT: Normocephalic
Respiratory: Clear to Auscultation
GI: Soft, Nontender and Nondistended
Neuro: Awake, Alert, Oriented and AO x 3
Psych: Calm
[2023-11-13 08:21] LABS: Blood Urea Nitrogen 17 mg/dl (7-17); Calcium 8.7 mg/dl (8.4-10.2); Carbon Dioxide 27 mmol/L (22-30); Chloride 98 mmol/L (98-107); Estimated Creatinine Clearance 85 ml/min; Glucose 91 mg/dl (70-99); Potassium 3.6 mmol/L (3.5-5.1); Sodium 135 mmol/L (135-145); eGFR > 60.00
[2023-11-13] MEDS: CYMBALTA DELAYED RELEASE 30 MG PO (08:22)
[2023-11-13] MEDS: LASIX 20 MG PO (08:22)
[2023-11-13] MEDS: CIPRO 500 MG PO (08:22)
[2023-11-13] MEDS: PEPCID 40 MG PO (08:22)
[2023-11-13] MEDS: DOLOPHINE 10 MG PO (08:22)
[2023-11-13] MEDS: LOVENOX 50 MG SC (08:27)
[2023-11-13] MEDS: MYCOSTATIN ORAL SUSPENSION 5 ML PO (08:28)
--- NOTE | 2023-11-13 08:29 | W.DCSUMMARY ---
Addendum entered and electronically signed by Jose Martin Mensah MD 11/15/23 07:05:
47yo F with PMHx of metastatic colon CA on chemo (last cycle 4 days before admission), Hx pf pulmonary embolism came with cough and sore throat, found new pulmonary embolism and bibasilar opacities, managed for Eliquis failure - started on Lovenox.
Found Pseudomonal pneumonia - on Cipro by ID. Bcx grew Veillonella species so ID started patient on Metronidazole and repeated Bcx. As agreement with ID - patient is medically stable for d/c home. She knows that if repeated Bcx will result with
infection - she has to come back. Meanwhile - no fevers, resolved leukocytosis.
spent 38min discharging the patient
A/P:
#Acute pulmonary embolism
#Oral thrush
#Pseudomonal CAP
#Bacteremia in one set of Bcx most likely 2/2 pneumonia
#Metastatic colon CA
#Cachexia 2/2 CA
#MDD
#Hypokalemia
#Hypomagnesemia
#Chronic LE swelling
#Anemia of chronic disease
#Transaminitis
#Alk.phos elevation
Original Note:
Discharge Summary
Discharge Data
Date of Admission: 11/08/23
Date of Discharge: 11/13/23
-
Pending Results: No
Hospital Course
Allergies
Allergy/AdvReac Type Severity Reaction Status Date / Time
tramadol Allergy Nausea / Verified 07/21/23 14:30
Vomiting
Home Medications
lorazepam 0.5 mg tablet 0.5 mg PO BIDPRN PRN anxiety 02/14/23
ondansetron 8 mg disintegrating tablet 8 mg PO Q8HPRN PRN nausea 02/14/23
sennosides 8.6 mg tablet (senna) 8.6 mg PO DAILYPRN PRN constipation 02/14/23
cyanocobalamin (vitamin B-12) 1,000 mcg tablet 1,000 mcg PO DAILY Supplement 11/08/23
dexamethasone 0.5 mg/5 mL oral solution 1 mg PO Q6H Anti-Inflammatory 11/08/23
duloxetine 30 mg capsule,delayed release sprinkle 30 mg PO DAILY Depression 11/08/23
famotidine 40 mg tablet 40 mg PO DAILY Gastrointestinal Issue 11/08/23
folic acid 1 mg tablet 1 mg PO DAILY Supplement 11/08/23
furosemide 20 mg tablet 20 mg PO DAILY Fluid Retention/Swelling 11/08/23
hydromorphone 8 mg tablet 12 mg PO Q4HPRN PRN severe pain 11/08/23
methadone 10 mg tablet 10 mg PO Q8H Pain 11/08/23
olanzapine 5 mg tablet 5 mg PO HS Mental Health/Anxiety 11/08/23
pregabalin 50 mg capsule 50 mg PO HS neuropathic pain 11/08/23
prochlorperazine maleate 10 mg tablet 10 mg PO Q6HPRN PRN nausea 11/08/23
ciprofloxacin HCl 500 mg tablet 500 mg PO BID #7 tabs 11/13/23
enoxaparin 60 mg/0.6 mL subcutaneous syringe 50 mg (0.5 mL) SC Q12H 30 days #60 ea 11/13/23
metronidazole 500 mg tablet 500 mg PO TID #15 tabs 11/13/23
nystatin 100,000 unit/mL oral suspension 5 ml PO QID #100 mL 11/13/23
Discharge Plan
-
Patient Disposition: Home (Routine Discharge)
Discharge Diagnosis/Procedures: VTE, pneumonia, bacteremia
Diet: Regular
Activity: As tolerated
Driving Restrictions: As prior to admission
Referrals:
Lori Hurley MD [Family Provider] -
Prescriptions:
New
metronidazole 500 mg Tablet
500 mg PO TID Qty: 15 0RF
ciprofloxacin HCl 500 mg Tablet
500 mg PO BID Qty: 7 0RF
nystatin 100,000 unit/mL Suspension
5 ml PO QID Qty: 100 0RF
enoxaparin 60 mg/0.6 mL Syringe
50 mg SC Q12H 30 Days Qty: 60 0RF
Continued
sennosides [senna] 8.6 mg Tablet
8.6 mg PO DAILYPRN PRN (Reason: constipation)
ondansetron 8 mg Tablet,Disintegrating
8 mg PO Q8HPRN PRN (Reason: nausea)
lorazepam 0.5 mg Tablet
0.5 mg PO BIDPRN PRN (Reason: anxiety)
Patient Comments:
11/08/23: last filled 10/07/23 for 60 tablets over 30 days
methadone 10 mg Tablet
10 mg PO Q8H
Patient Comments:
11/08/23: last filled 11/05/23 for 90 tablets over 30 days
famotidine 40 mg Tablet
40 mg PO DAILY
hydromorphone 8 mg Tablet
12 mg PO Q4HPRN PRN (Reason: severe pain)
Patient Comments:
11/08/23: last filled 11/07/23 for 168 tablets over 21 days
olanzapine 5 mg Tablet
5 mg PO HS
cyanocobalamin (vitamin B-12) 1,000 mcg Tablet
1,000 mcg PO DAILY
prochlorperazine maleate 10 mg Tablet
10 mg PO Q6HPRN PRN (Reason: nausea)
dexamethasone 0.5 mg/5 mL Solution
1 mg PO Q6H
folic acid 1 mg Tablet
1 mg PO DAILY
furosemide 20 mg Tablet
20 mg PO DAILY
pregabalin 50 mg Capsule
50 mg PO HS
Patient Comments:
11/08/23: last filled 10/23/23 for 49 tablets over 30 days
duloxetine 30 mg Capsule, Delayed Rel Sprinkle
30 mg PO DAILY
Discontinued
Eliquis 5 mg Tablet
5 mg PO BID
Discharge Orders:
Discharge Patient (As Directed); Ordered 11/13/23
Ordered By: Jose Martin Mensah
Discharge Date and Time
Print Language: IRANIAN
--- NOTE | 2023-11-13 09:18 | PN.CDI ---
Addendum entered and electronically signed by Jose Martin Mensah MD 11/13/23 10:20:
No clinical signs of sepsis for me
Original Note:
CDI
- -
CDI:
Physician Documentation Request
Admit Date: 11/08/23 19:05
Dear Doctor Rodrick,
Clinical Indicators:
The diagnosis of Sepsis was documented on 11/07 in H&P and 11/08 in progress note, but is not consistently noted in subsequent documentation.
Progress note 11/08 states 'Sepsis POA from Pneumonia (leukocytosis, tachycardia)'
Please clarify the following:
____ - Sepsis was present on admission
____ - Sepsis was ruled out
____ - Other
Use of terms such as suspected, likely, concern for, or probable (associated with a specific diagnosis that is being evaluated, monitored, or treated as if it exists) are acceptable and can be coded in the inpatient setting, when documented at the
time of discharge.
Thank you,
Roxie Magallon RN, BSN
CDI Specialist
tiger text
Please use your independent medical judgment in providing your response.
== END 2023-11-13 11:20 | disposition home or self-care (01) | DRG 177 ==
LOC: 3 WEST ACU 19:05
PROVIDERS: Emergency Medicine; Internal Medicine; Physician Assistant; Registered Nurse; ADMITTING PHYSICIAN Hospitalist; ATTENDING PHYSICIAN Internal Medicine; CONSULT PHYSICIAN Internal Medicine Hematology & Oncology; EMERGENCY PHYSICIAN Emergency Medicine; FAMILY PHYSICIAN Family Medicine; OTHER PHYSICIAN Student in an Organized Health Care Education/Training Program
DX: J15.1 Pneumonia due to Pseudomonas (principal); I26.99 Other pulmonary embolism without acute cor pulmonale; B37.0 Candidal stomatitis; C78.7 Secondary malignant neoplasm of liver and intrahepatic bile duct; R78.81 Bacteremia; R64 Cachexia; Z68.1 Body mass index [BMI] 19.9 or less, adult; J98.11 Atelectasis; C18.9 Malignant neoplasm of colon, unspecified; D63.0 Anemia in neoplastic disease; F32.9 Major depressive disorder, single episode, unspecified; E87.6 Hypokalemia; E83.42 Hypomagnesemia; B96.89 Other specified bacterial agents as the cause of diseases classified elsewhere; G89.3 Neoplasm related pain (acute) (chronic); K21.9 Gastro-esophageal reflux disease without esophagitis; K59.00 Constipation, unspecified; Z79.01 Long term (current) use of anticoagulants; Z79.52 Long term (current) use of systemic steroids; Z79.899 Other long term (current) drug therapy; Z79.891 Long term (current) use of opiate analgesic; Z87.891 Personal history of nicotine dependence; Z20.822 Contact with and (suspected) exposure to COVID-19
CPT/HCPCS: 71046; 71275; 80048; 80053; 83735; 84484; 85025; 85027; 85379; 85730; 87040; 87070; 87077; 87186; 87205; 87449; 87502; 87811; 87880; 87899; 93005; 93970; 96365; 96367; 96375; 97162; 99285; J2997; Q9967